=== PATIENT | female | born 1950 | race Caucasian/White ===

== ENCOUNTER 2019-07-09 16:42 | Inpatient (IN) ==
[2019-07-09] MEDS ORDERED: FAMOTIDINE 20MG IV PUSH 20 MG/5 ML SYR IV STA (17:10)
--- NOTE | 2019-07-09 17:24 | XRay Report ---
XR chest 1V portable CLINICAL HISTORY: Chest Pain COMPARISON STUDY: No previous studies for comparison. FINDINGS: Lung volumes are normal. There is no pneumothorax or pleural effusion. There is no consolid ation or evidence for pulmonary edema. There is moderate cardiomegaly. IMPRESSION: 1. No acute cardiopulmonary findings. 2. Moderate cardiomegaly. Electronically signed by: Vadim Cervantes M.D. 07/09/2019 5:23 PM
[2019-07-09 17:57] LABS: Basophils # (auto) 0.02 K/uL (0-0.2); Basophils % (auto) 0.1 %; Eosinophils # (auto) 0.16 K/uL (0-0.5); Eosinophils % (auto) 1.2 %; Hematocrit (blood only) 30.4 % (37-47); Hemoglobin 9.5 g/dL (12.0-16.0); Immature Granulocytes # (auto) 0.04 K/uL (0.00-0.02); Immature Granulocytes % (auto) 0.3 %; Lymphocytes # (auto) 1.14 K/uL (1.2-3.4); Lymphocytes % (auto) 8.5 %; Mean Corpuscular Hemoglobin 26.6 pg (25-34); Mean Corpuscular Hgb Conc 31.3 g/dL (32-36); Mean Corpuscular Volume 85.2 fL (80-100); Mean Platelet Volume 9.9 fL (7.4-10.4); Monocytes # (auto) 1.28 K/uL (0.11-0.59); Monocytes % (auto) 9.5 %; Neutrophils # (auto) 10.84 K/uL (1.4-6.5); Neutrophils % (auto) 80.4 %; Nucleated RBC # (auto) 0.04 K/uL (0-0); Nucleated RBC % (auto) 0.3 %; Platelet Count 466 K/uL (130-400); RDW Coefficient of Variation 16.9 % (11.5-14.5); RDW Standard Deviation 50.9 fL (36.4-46.3); Red Blood Count 3.57 M/uL (4.2-5.4); White Blood Count 13.48 K/uL (4.8-10.8)
[2019-07-09 18:12] LABS: Partial Thromboplastin Ratio 0.8; Partial Thromboplastin Time 20.5 Seconds (21.0-31.0); Prothrombin Time 10.6 Seconds (9.0-12.0)
[2019-07-09 18:20] LABS: Alanine Aminotransferase 21 U/L (12-78); Albumin Level 3.2 gm/dl (3.4-5.0); Aspartate Aminotransferase 10 U/L (15-37); BUN Creatinine Ratio 43.9 (10-20); Bilirubin Direct 0.2 mg/dl (0-0.2); Blood Urea Nitrogen 35 mg/dl (7-18); Calcium 8.5 mg/dl (8.5-10.1); Carbon Dioxide 29 mmol/L (21-32); Chloride 97 mmol/L (98-107); Creatinine Clr Calc Pharmacy 91.5 ml/min; Est GFR (African American) 90.4; Glucose 123 mg/dl (70-99); Lipase 188 U/L (73-393); Potassium 3.4 mmol/L (3.5-5.1); Sodium 137 mmol/L (136-145)
[2019-07-09 18:25] LABS: Alkaline Phosphatase 73 U/L (45-117); Bilirubin,Total 0.8 mg/dl (0.2-1); Globulin 3.1 gm/dl (2.5-4.0); Phosphorus 3.4 mg/dl (2.5-4.9); Total Protein 6.3 gm/dl (6.4-8.2); Troponin I < 0.015 ng/ml (0-0.045)
[2019-07-09] MEDS ORDERED: IOVERSOL 100ml IV PRN (19:11)
--- NOTE | 2019-07-09 19:27 | CT Scan Report ---
CT OF THE ABDOMEN AND PELVIS WITH CONTRAST CLINICAL HISTORY: Abdominal pain. Melena. COMPARISON STUDY: None. TECHNIQUE: Following IV administration of 92 mL of Optiray-320, axial images of the abdomen and pelvi s were obtained from the lung bases to the proximal femurs. Images were reviewed in the axial, sagitt al, and coronal planes. IV contrast was administered without complication. Automated exposure contro l was utilized for the study. A dose lowering technique was utilized adhering to the principles of A COLETTE. CT DOSE: 1946.69 mGy.cm FINDINGS: Lung bases are clear. Moderate cardiomegaly is noted. No pneumatosis, free air or portal ve nous gas is present. No hepatic lesions are present. The spleen, adrenal glands and kidneys are tez l. Is no hydronephrosis. There is no biliary or pancreatic ductal dilatation. There is subtle infiltr ation along the lesser curvature the stomach, adjacent to the antrum. No free air is present. There i s no abscess. Apparent gastric wall thickening is noted. There is no evidence for a bowel obstruction . The appendix is normal. Colonic diverticulosis is noted without evidence for acute diverticulitis. There are no suspicious osseous lesions. Multilevel degenerative changes within the lumbar spine are noted. Sensitivity for detection mucosal lesions is diminished given CT technique. IMPRESSION: 1. Minimal infiltration adjacent to the gastric antrum along the lesser curvature. Possible gastric w all thickening. The findings favor peptic ulcer disease. No free air. A mucosal lesion could appear s imilar. GI consultation for consideration for endoscopy is recommended. 2. No bowel obstruction. Normal appendix. Electronically signed by: Vadim Cervantes M.D. 07/09/2019 7:25 PM
[2019-07-09] MEDS ORDERED: PANTOprazole 80 MG in DEXTROSE 5% 100 ML IV SCH (19:45)
--- NOTE | 2019-07-09 20:27 | Emergency Department Note ---
Entered by Levon Diaz acting as a scribe for Fazal Rossi MD History of Present Illness General Chief complaint: GI Bleed Stated complaint: gi bleed/light headed Time Seen by Provider: 07/09/19 16:50 Source: patient History of Present Illness Onset (ago): day(s) 2 Location: abdomen (GI bleeding) Pain Consistency: + other (worsening) Quality: + other (black and tarry stools) Associated symptoms: + denies other symptoms (congestion), + shortness of breath and + other (light-headedness, dizziness, shaking, leg swelling, and hand cram ping); no cough and no fever/chills The patient is a 68 year old F who presents to the Emergency Room with complaints of worsening GI bleeding that started 2 days ago. The patient states that she has had diarrhea for the past two days. She describes that her stools are black and tarry. She states that she is currently experiencing light-h eadedness, dizziness, shaking, shortness of breath, leg swelling, and hand cramping. She notes that her shortness of breath is due to fluid retention. She adds that she is on a water pill. She denies that she is currently experiencing fevers, chills, coughing, and congestion. She states that she currently takes Plavix and aspirin after a stroke. She adds that she is on metformin for a history of diabetes. She denies ever having a blood transfusion. Home Medications Home Medications Medication Instructions Recorded Confirmed Type acetaminophen 500 mg PO DIRECTED PRN 07/09/19 07/09/19 History aspirin 81 mg PO QAM 07/09/19 07/09/19 History atenolol 25 mg PO QAM 07/09/19 07/09/19 History clopidogrel [Plavix] 75 mg PO QAM 07/09/19 07/09/19 History hydrochlorothiazide 25 mg PO QAM 07/09/19 07/09/19 History lactobacillus combination no.4 0 mmu cells PO QAM 07/09/19 07/09/19 History [Probiotic] magnesium 250 mg PO QAM 07/09/19 07/09/19 History metformin 1,000 mg PO BID 07/09/19 07/09/19 History pyridoxine (vitamin B6) [Vitamin 100 mg PO QAM 07/09/19 07/09/19 History B-6] Allergies Allergy/AdvReac Type Severity Reaction Status Date / Time ciprofloxacin [From Cipro] Allergy Intermediate Throat Verified 07/09/19 18:06 tightness tetracycline Allergy Intermediate Throat Verified 07/09/19 18:06 tightness Past Med/Surg History Medical History Fluid retention in legs (Chronic) Diabetes (Chronic) Kidney stones Surgical History H/O hysterectomy with oophorectomy History of laminectomy Hx of cholecystectomy Total knee replacement status Family History Other No significant family history Social History Preferred Language: Danish Communication Ability: Effective Silo Painter Required: No Beliefs That Will Affect Care: None Current Living Situation: Alone Other Information That Helps Us Care for You: No Feels Safe at Home: Yes Safety Concerns: Feels Safe At This Time Smoking Status: Former smoker Do You Dip or Chew Tobacco: No ; Second Hand Exposure: No ; Tobacco Cessation Education Requested by Patient: No Hx Alcohol Use: Yes Alcohol type: beer, wine and hard liquor Hx Substance Use: No Review of Systems See HPI for pertinent positives & negatives. and A total of 10 systems reviewed and were otherwise negative Physical Exam Vital Signs Vital Signs - 24 hr 07/09/19 16:58 07/09/19 17:42 07/09/19 18:24 Temperature 36.8 C Temperature Source Oral Sepsis Recent Fever Within 48 Hours No Sepsis New/Unexplained Change in Mental Status No Sepsis Action Taken by Nursing No Action Required Pulse Rate 87 Pulse Rate [Apical] 85 Respiratory Rate 18 20 Blood Pressure 136/73 Blood Pressure [Left Arm] 135/78 Blood Pressure Mean 94 Blood Pressure Mean [Left Arm] 97 Pulse Oximetry 95 96 95 Oxygen Delivery Method Room Air Room Air Room Air GENERAL: Awake, alert, fatigued-appearing. BMI: 50.1 kg/m^2 HENT: Normocephalic, atraumatic. Oropharynx with dry mucous membranes and ot herwise unremarkable. EYES: Normal conjunctiva. Sclera non-icteric. EOMI. No nystamgus. PEARRL. NECK: Supple. No nuchal rigidity. FROM. No JVD. RESPIRATORY: CTAB CARDIAC: RRR ABDOMEN: Soft, non-distended. Generalized abdominal discomfort without discrete tenderness. No rebound or guarding. No masses. RECTAL: melena, no gross blood, guaiac positive MUSCULOSKELETAL: Chest examination reveals no tenderness. The back is symmetrical on inspection without obvious abnormality. There is no CVA tenderne ss to palpation. No joint edema. LOWER EXTREMITIES: Calves are equal size bilaterally and non-tender. No edema. No discoloration. NEURO: Normal sensorium. No sensory or motor deficits noted. SKIN: No rash or jaundice noted. Course 1704: The patient was evaluated in room C8. A complete history and physical exam was performed. 1808: I performed a rectal exam on the patient with a female nurse chimney builder brick present. 1931: [facility] He will evaluate the patient for further management. Consultations Consultation #1: I [facility] the [facility] He will evaluate the patient for further management. Time: 19:32 Administered Medications Pantoprazole Sodium 40 mg/ (Dextrose) 100 mls @ 20 mls/hr IV Q5H [facility] Stop: 08/08/19 19:59 Last Admin: 07/09/19 20:33 Dose: 20 mls/hr Documented by: [id number] Discontinued Medications Famotidine (Pepcid 20mg Iv Push) 20 mg in 5 mls @ 2.5 mls/min IV NOW STA Stop: 07/09/19 17:11 Last Admin: 07/09/19 17:56 Dose: 2.5 mls/min Documented by: [id number] Pantoprazole Sodium 80 mg/ (Dextrose) 120 mls @ 480 mls/hr IV TODAY@1945 [place] Stop: 07/09/19 19:59 Last Admin: 07/09/19 20:01 Dose: 480 mls/hr Documented by: [id number] Ioversol (Optiray 320 100ml) 92 ml IV ONCE PRN PRN Reason: Interaction Checking Stop: 07/13/19 19:10 Last Admin: 07/09/19 19:12 Dose: 92 ml Documented by: [id number] Medical Decision Making Differential Diagnosis Differential diagnosis: Etiologies such as esophagitis, variceal bleed, [place], [place] tear, gastritis, peptic ulcer disease, AVM, inflammatory bowel disease, ischemia, diverticulosis, colitis, malignancy, coagulopathy, thrombocytopenia, fissure, hemorrhoid, epistaxis , as well as others were entertained. Medical Records Attestation: I reviewed the patient's medical records. Home Medications Current Medication List: was personally reviewed by me Laboratory Data Attestation: I reviewed the patient's lab results. Result diagrams: 07/09/19 22:48 07/09/19 17:43 Lab Results 07/09/19 07/09/19 07/09/19 Range/Units 17:43 17:43 17:43 WBC 13.48 H (4.8-10.8) K/uL RBC 3.57 L (4.2-5.4) M/uL Hgb 9.5 L (12.0-16.0) g/dL Hct 30.4 L (37-47) % MCV 85.2 (80-100) fL MCH 26.6 (25-34) pg MCHC 31.3 L (32-36) g/dL RDW Std Deviation 50.9 H (36.4-46.3) fL RDW Coeff of Mary Anne 16.9 H (11.5-14.5) % Plt Count 466 H (130-400) K/uL MPV 9.9 (7.4-10.4) fL Immature Gran % (Auto) 0.3 % Neut % (Auto) 80.4 % Lymph % (Auto) 8.5 % [place] % (Auto) 9.5 % Eos % (Auto) 1.2 % Baso % (Auto) 0.1 % Immature Gran # (Auto) 0.04 H (0.00-0.02) K/uL Neut # (Auto) 10.84 H (1.4-6.5) K/uL Lymph # (Auto) 1.14 L (1.2-3.4) K/uL [place] # (Auto) 1.28 H (0.11-0.59) K/uL Eos # (Auto) 0.16 (0-0.5) K/uL Baso # (Auto) 0.02 (0-0.2) K/uL Absolute Nucleated RBC 0.04 H (0-0) K/uL Nucleated RBC % (auto) 0.3 % PT (9.0-12.0) Seconds INR (0.9-1.1) APTT (21.0-31.0) Seconds PTT Ratio Sodium 137 (136-145) mmol/L Potassium 3.4 L (3.5-5.1) mmol/L Chloride 97 L (98-107) mmol/L Carbon Dioxide 29 (21-32) mmol/L Anion Gap 11.0 (3-11) BUN 35 H (7-18) mg/dl Creatinine 0.79 (0.6-1.2) mg/dl Est Cr Clr Drug Dosing 91.5 ml/min Est GFR ( Amer) 90.4 Est GFR (Non-Af Amer) 78.0 BUN/Creatinine Ratio 43.9 H (10-20) Glucose 123 H (70-99) mg/dl Calcium 8.5 (8.5-10.1) mg/dl Phosphorus 3.4 (2.5-4.9) mg/dl Magnesium (1.8-2.4) mg/dl Total Bilirubin 0.8 (0.2-1) mg/dl Direct Bilirubin 0.2 (0-0.2) mg/dl AST 10 L (15-37) U/L ALT 21 (12-78) U/L Alkaline Phosphatase 73 (45-117) U/L Troponin I < 0.015 (0-0.045) ng/ml Total Protein 6.3 L (6.4-8.2) gm/dl Albumin 3.2 L (3.4-5.0) gm/dl Globulin 3.1 (2.5-4.0) gm/dl Albumin/Globulin Ratio 1.0 (0.9-2) Lipase 188 (73-393) U/L Ethyl Alcohol mg/dL (0-3) mg/dl Blood Type A Positive Antibody Screen NEGATIVE 07/09/19 07/09/19 07/09/19 Range/Units 17:43 17:43 17:43 WBC (4.8-10.8) K/uL RBC (4.2-5.4) M/uL Hgb (12.0-16.0) g/dL Hct (37-47) % MCV (80-100) fL MCH (25-34) pg MCHC (32-36) g/dL RDW Std Deviation (36.4-46.3) fL RDW Coeff of Mary Anne (11.5-14.5) % Plt Count (130-400) K/uL MPV (7.4-10.4) fL Immature Gran % (Auto) % Neut % (Auto) % Lymph % (Auto) % [place] % (Auto) % Eos % (Auto) % Baso % (Auto) % Immature Gran # (Auto) (0.00-0.02) K/uL Neut # (Auto) (1.4-6.5) K/uL Lymph # (Auto) (1.2-3.4) K/uL [place] # (Auto) (0.11-0.59) K/uL Eos # (Auto) (0-0.5) K/uL Baso # (Auto) (0-0.2) K/uL Absolute Nucleated RBC (0-0) K/uL Nucleated RBC % (auto) % PT 10.6 (9.0-12.0) Seconds INR 1.0 (0.9-1.1) APTT 20.5 L (21.0-31.0) Seconds PTT Ratio 0.8 Sodium (136-145) mmol/L Potassium (3.5-5.1) mmol/L Chloride (98-107) mmol/L Carbon Dioxide (21-32) mmol/L Anion Gap (3-11) BUN (7-18) mg/dl Creatinine (0.6-1.2) mg/dl Est Cr Clr Drug Dosing ml/min Est GFR ( Amer) Est GFR (Non-Af Amer) BUN/Creatinine Ratio (10-20) Glucose (70-99) mg/dl Calcium (8.5-10.1) mg/dl Phosphorus (2.5-4.9) mg/dl Magnesium 2.0 (1.8-2.4) mg/dl Total Bilirubin (0.2-1) mg/dl Direct Bilirubin (0-0.2) mg/dl AST (15-37) U/L ALT (12-78) U/L Alkaline Phosphatase (45-117) U/L Troponin I (0-0.045) ng/ml Total Protein (6.4-8.2) gm/dl Albumin (3.4-5.0) gm/dl Globulin (2.5-4.0) gm/dl Albumin/Globulin Ratio (0.9-2) Lipase (73-393) U/L Ethyl Alcohol mg/dL < 3.0 (0-3) mg/dl Blood Type Antibody Screen Imaging Data Radiologist's Impression: Radiology results as stated below per my review and the radiologist's interpretation: XR chest 1V portable CLINICAL HISTORY: Chest Pain COMPARISON STUDY: No previous studies for comparison. FINDINGS: Lung volumes are normal. There is no pneumothorax or pleural effusion. There is no consolidation or evidence for pulmonary edema. There is moderate cardiomegaly. IMPRESSION: 1. No acute cardiopulmonary findings. 2. Moderate cardiomegaly. Electronically signed by: Vadim Cervantes M.D. 07/09/2019 5:[address] OF THE ABDOMEN AND PELVIS WITH CONTRAST CLINICAL HISTORY: Abdominal pain. Melena. COMPARISON STUDY: None. TECHNIQUE: Following IV administration of 92 mL of Optiray-320, axial images of the abdomen and pelvis were obtained from the lung bases to the proximal femurs. Images were reviewed in the axial, sagittal, and coronal planes. IV contrast was administered without complication. Automated exposure control was utilized for the study. A dose lowering technique was utilized adhering to the principles of ALARA. CT DOSE: 1946.69 mGy.cm FINDINGS: Lung bases are clear. Moderate cardiomegaly is noted. No pneumatosis, free air or portal venous gas is present. No hepatic lesions are present. The spleen, adrenal glands and kidneys are normal. Is no hydronephrosis. There is no biliary or pancreatic ductal dilatation. There is subtle infiltration along the lesser curvature the stomach, adjacent to the antrum. No free air is present. There is no abscess. Apparent gastric wall thickening is noted. There is no evidence for a bowel obstruction. The appendix is normal. Colonic diverticulosis is noted without evidence for acute diverticulitis. There are no suspicious osseous lesions. Multilevel degenerative changes within the lumbar spine are noted. Sensitivity for detection mucosal lesions is diminished given CT technique. IMPRESSION: 1. Minimal infiltration adjacent to the gastric antrum along the lesser curvature. Possible gastric wall thickening. The findings favor peptic ulcer disease. No free air. A mucosal lesion could appear similar. GI consultation for consideration for endoscopy is recommended. 2. No bowel obstruction. Normal appendix. Electronically signed by: Vadim Cervantes M.D. 07/09/2019 7:25 PM ECG Data Attestation: I personally reviewed and interpreted this ECG as follows: Indication: SOB/dyspnea Rate (beats per minute): 81 Rhythm: normal sinus Findings: + other (normal axis) and + T-wave inversion (Anterior); no acute ischemic change Blood Pressure Blood Pressure Findings: Normal blood pressure Blood Pressure Disposition: did not require urgent referral MDM Narrative Patient is a pleasant 68-year-old woman who presents emergency department with generalized weakness, dizziness with associated nausea and black stools over the past several days per hpi. On arrival the patient fatigued appearing but no acute distress, afebrile stable vital signs. On exam the patient exhibits carol phi without gross blood that is guaiac positive. Generalized abdominal discomfort without discrete tenderness. WBC 13.4, nonspecific. H/H 9.5/30.4 without prior values for comparison. Platelets 466. Chemistry without acidosis. Creatinine within normal limits however BUN is elevated further supp orting likely upper GI bleed. Electrolytes and LFTs otherwise unremarkable. Troponin negative. CT abdomen pelvis demonstrates minimal infiltration adjacent to the gastric antrum with possible gastric wall thickening that favors PUD. However no free air. Patient was ordered for Protonix bolus and drip. Type and screen had been performed. Given the patient is hemodynamically stable without active hemorrhage will defer transfusion at this time. Case was discussed with Dr. Keller, [facility] hospitalist, who will evaluate the patient for admission. Impression & Plan Melena, Anemia, Dizziness Discharge Plan Visit Data *Final* Discharge Date/Time: 07/09/19 21:28 Chief Complaint: GI Bleed Stated Complaint: gi bleed/light headed ED Provider: Fazal Rossi Discharge Problem: Melena, Anemia, Dizziness Patient Disposition: Admitted As Inpatient Discharge Instructions Interventions: ED Discharge Assessment Last Done: 07/09/19 21:28 Discharge Problem: Anemia Qualifiers: Anemia type: unspecified type Qualified Code(s): D64.9 - Anemia, unspecified The scribe's documentation has been prepared under my direction and personally reviewed by me in its entirety. I confirm that the note above accurately re flects all work, treatment, procedures, and medical decision making performed by me.
[2019-07-09] MEDS: PANTOprazole 40 MG in DEXTROSE 5% 100 ML IV SCH (20:33)
[2019-07-09] MEDS ORDERED: ONDANSETRON INJ 2 MG/ML 2 ML VIAL IV PRN (22:28)
[2019-07-09] MEDS ORDERED: NITROGLYCERIN SL 0.4 MG/TAB TAB SL PRN (22:28)
[2019-07-09] MEDS ORDERED: DEXTROSE 50% 50 ML SYRINGE IV PRN (22:45)
[2019-07-09] MEDS ORDERED: GLUCOSE 40% GEL 15 GM TUBE PO PRN (22:45)
[2019-07-09] MEDS ORDERED: GLUCOSE 10 TABS/TUBE PO PRN (22:45)
[2019-07-09] MEDS ORDERED: CARBOHYDRATES FOR HYPOGLYCEMIA PO PRN (22:45)
[2019-07-09] MEDS ORDERED: GLUCAGON FOR INJ 1 MG VIAL IM PRN (22:45)
--- NOTE | 2019-07-09 22:48 | History and Physical Report ---
DATE OF ADMISSION: 07/09/2019 CHIEF COMPLAINT: Gastrointestinal bleed. HISTORY OF PRESENT ILLNESS: This patient is a 68-year-old female with past medical history significant for diabetes, hypertension, sleep apnea, noncompliant with continuous positive airway pressure, history of cerebrovascular accident about 8 years ago postoperatively after bilateral knee surgeries. She has a history of factor V Leiden deficiency and since then she is on aspirin and Plavix since last 8 years. She comes in with black stools. The patient is from [facility]. She is locating to [place]. She is coming close to live with her sister. She has no primary care physician yet in the [place]. She states since the last 2 days ago, she started noticing black stools and diarrhea. The last episode was yesterday afternoon, but then she started feeling dizzy and lightheaded, and that has brought her to the hospital. Her stool in the Emergency Room was black. She denies taking any [id number] ibuprofen, Motrin .On aspirin and Plavix. She has some discomfort in the epigastric region. No nausea. No vomiting. No chest pain. No shortness of breath currently, but she gets short of breath walking up hills. For the last couple of months, she noticed swelling in the lower extremities. She was diagnosed with sleep apnea a long time back, but she could not tolerate the continuous positive airway pressure machine. Denies any headache. No blurred vision. No earache. She has some sore throat. No difficulty swallowing. Appetite is okay. Sleeps okay. No recent weight gain or weight loss. No cough. No fever. No chills. No feeling of hot or cold. Normal bladder movements. No burning micturition. No blood in the urine. No rash. She states she bruises easily as she is on aspirin and Plavix. Currently resting comfortably and hemodynamically stable. ALLERGIES: CIPRO AND TETRACYCLINE. PAST MEDICAL HISTORY: As mentioned. PAST SURGICAL HISTORY: Status post cholecystectomy, status post back surgeries, status post hysterectomy and status post bilateral knee surgeries. MEDICATIONS: The patient is on Tylenol 500 mg as needed, aspirin 81 mg p.o. daily, atenolol 25 mg p.o. daily, Plavix 75 mg p.o. daily, hydrochlorothiazide 25 mg p.o. daily, lactobacillus daily, magnesium 250 mg p.o. daily, metformin 1000 mg p.o. b.i.d., and vitamin B6 1000 mg p.o. q.a.m. FAMILY HISTORY: Significant for mother from lung cancer. Father had cerebral bleeding. Maternal grandmother had diabetes. Grandfather had colon cancer. SOCIAL HISTORY: Quit smoking 8 years ago. Prior to that, she smoked half pack a day for 25 years. Denies alcohol use. Currently lives alone. Her sister lives close by. REVIEW OF SYMPTOMS: As per HPI. Rest of review of systems negative. PHYSICAL EXAMINATION: GENERAL: The patient is morbidly obese, not in acute distress. VITAL SIGNS: Temperature 36.8, pulse 85, respiratory rate 20, blood pressure 135/78 and oxygen 95% on room air. HEENT: No pallor. No icterus. Pupils are equal, round and reactive to light. NECK: No JVD. No neck masses. No carotid bruits. CARDIOVASCULAR: S1, S2 heard. Regular rate and rhythm. No murmur. No gallop. RESPIRATORY SYSTEM: Normal AP diameter. No accessory muscle use. No wheezing. No crackles. ABDOMEN: Soft. Bowel sounds present. Mild epigastric tenderness. No guarding. No rigidity. No distention. CENTRAL NERVOUS SYSTEM: Cranial nerves II through XII are grossly intact. Nonfocal. EXTREMITIES: Bilateral lower extremity +2 pedal edema present. No erythema seen. LABORATORY DATA: WBC 13.4, hemoglobin 9.5, hematocrit 30.4 and platelets 466. PT 10.6, INR 1, APTT 20.5. Sodium 137, potassium 3.4, chloride 97, bicarbonate 29, BUN 35, creatinine 0.7, serum glucose 123, calcium 8.5, phosphorus 3.4, magnesium 2, total bilirubin 0.8, direct bilirubin 0.2, AST 10, ALT 21 and alkaline phosphatase 73. Troponin I less than 0.015. Lipase 188. Ethyl alcohol less than 3. IMAGING: CT of abdomen and pelvis shows minimal infiltration adjacent to the gastric antrum along the lesser curvature, probable gastric wall thickening. This finding favors peptic ulcer disease. No free air. The mucosal lesions appear similar. Gastroenterology consultation for consideration of endoscopy was recommended. No bowel obstruction. Normal appendix. Chest x-ray, no acute cardiopulmonary findings, moderate cardiomegaly. Electrocardiogram, normal sinus rhythm with rate of 80, q waves in inferior leads, nonspecific T-wave abnormalities. ASSESSMENT AND PLAN: This is a 68-year-old female who presents with melena. 1. Gastrointestinal bleed, melena, most likely upper gastrointestinal bleed. The patient is on aspirin, Plavix and also CAT scan showed some possible peptic ulcer disease. The patient states a few years back, she had a lot of nausea and vomiting and endoscopy showed a large polyp in the upper stomach causing obstruction. It was removed. We will keep the patient n.p.o. Gentle fluids. I.V. Protonix drip. Hemoglobin and hematocrit q. 6 hours. We will get blood consent and consult Gastroenterology for possible endoscopy. Closely monitor on tele floor. We will transfuse packed red blood cells if needed.Blood consent obtained. 2. Lower extremity edema with some electrocardiogram changes. The patient has sleep apnea, but noncompliant with continuous positive airway pressure. We will get an echocardiogram. We will monitor for volume overload as patient will be on l gentle fluids. 3. History of sleep apnea, noncompliant with continuous positive airway pressure, needs close followup. 4. History of cerebrovascular accident 7 years ago when she had bilateral knee surgeries, on aspirin and Plavix, which we are holding currently. 5. History of diabetes. Hold metformin, currently n.p.o., we will place her on insulin sliding scale and follow HbA1c. Follow blood sugars in the hospital. 6. History of hypertension. Holding hctz. Continue atenolol with holding parameters. 7. Deep venous thrombosis prophylaxis, sequential compression devices for now. 8. Disposition: Closely monitor in the tele floor. Level 1 full code. Physical therapy and occupational therapy prior to discharge. Social Service to help with discharge planning. Needs followup appointments since the patient is relocating to [place]. [facility]
[2019-07-09 22:56] LABS: Hematocrit (blood only) 30.5 % (37-47); Hemoglobin 9.5 g/dL (12.0-16.0)
[2019-07-10] MEDS: INSULIN ASPART 100 UNITS/ML 3 ML PEN SC SCH ×5 (00:10→21:22)
[2019-07-10] MEDS: SODIUM CHLORIDE 0.9% 1000ML 1,000 ML IV SCH ×2 (00:12→13:44)
[2019-07-10] MEDS: PANTOprazole 40 MG in DEXTROSE 5% 100 ML IV SCH ×5 (03:04→19:13)
[2019-07-10 05:56] LABS: Basophils # (auto) 0.03 K/uL (0-0.2); Basophils % (auto) 0.2 %; Eosinophils % (auto) 1.6 %; Immature Granulocytes # (auto) 0.06 K/uL (0.00-0.02); Immature Granulocytes % (auto) 0.5 %; Lymphocytes # (auto) 1.31 K/uL (1.2-3.4); Lymphocytes % (auto) 10.5 %; Mean Corpuscular Hemoglobin 26.6 pg (25-34); Mean Corpuscular Volume 85.8 fL (80-100); Mean Platelet Volume 9.8 fL (7.4-10.4); Monocytes # (auto) 1.72 K/uL (0.11-0.59); Monocytes % (auto) 13.8 %; Neutrophils # (auto) 9.15 K/uL (1.4-6.5); Neutrophils % (auto) 73.4 %; Nucleated RBC # (auto) 0.03 K/uL (0-0); Nucleated RBC % (auto) 0.3 %; Platelet Count 434 K/uL (130-400); RDW Standard Deviation 52.4 fL (36.4-46.3); Red Blood Count 3.38 M/uL (4.2-5.4); White Blood Count 12.47 K/uL (4.8-10.8)
[2019-07-10 06:27] LABS: Creatinine Clr Calc Pharmacy 104.5 ml/min; Est GFR (African American) 105.6; Est GFR (Non-African American) 91.2; Potassium 3.4 mmol/L (3.5-5.1)
[2019-07-10 07:00] LABS: Estimated Average Glucose 189 mg/dl; Hemoglobin A1C 8.2 % (4.5-5.6)
[2019-07-10] MEDS: MAGNESIUM OXIDE 400 MG TAB PO SCH (08:11)
[2019-07-10] MEDS: ATENOLOL 25 MG TABLET PO SCH (08:11)
[2019-07-10] MEDS: POTASSIUM CHLORIDE / WTR 10 MEQ/100 ML PLCT IV SCH ×2 (08:11→08:54)
[2019-07-10 10:54] LABS: Hematocrit (blood only) 29.1 % (37-47); Hemoglobin 8.9 g/dL (12.0-16.0)
--- NOTE | 2019-07-10 13:20 | Hospitalist Progress Note ---
Date of Service July 10, 2019 Assessment & Plan (1) Melena: Has history of gastric polyp removed about 8 years back and no EGD following that Admitted with the 2 days history of loose black tarry stool Denies any use of NSAID use outside her usual aspirin and Plavix No more black tarry stools since admission Complains to have dizziness on ambulation but denies any chest pain and/or palpitation Hemoglobin remains stable at 9.0 Hemodynamically stable Has been on Protonix drip and n.p.o. for now Gastroenterology consulted Present on Admission?: Yes (2) Anemia: Secondary to upper GI blood loss (3) Dizziness: Likely secondary to low hemoglobin (4) Diabetes: Will check hemoglobin A1c Place her on sliding scale insulin coverage (5) Sleep apnea: History of sleep apnea but does not tolerate CPAP and BiPAP No acute symptoms (6) Hypertension: BP is controlled (7) Factor V Leiden mutation: Has been on aspirin and Plavix Aspirin and Plavix are on hold DVT prophylaxis SCDs CODE STATUS Full Subjective 07/10 The patient was seen and examined in telemetry unit She is a 68-year-old female with past medical history significant for diabetes, hypertension, sleep apnea, noncompliant with continuous positive airway pressure, history of cerebrovascular accident about 8 years ago andfactor V Leiden deficiency and since then she is on aspirin and Plavix since last 8 years. She was admitted yesterday with the melanotic stool for the last 2 days with diarrhea She denies any abdominal discomfort, any nausea no vomiting, denies any chest pain or palpitation and did not have any bowel movement since admission Review of Systems Review of Systems: All systems reviewed and unremarkable except as noted below Gastrointestinal: no abdominal pain, no bloating, no nausea, no vomiting, no hematemesis and no melena (Since admission.) Physical Exam Physical Exam: Lying in bed comfortably, obese Constitutional: well developed, well nourished, + ill appearing and + obese; no acute distress Eyes: PERRL, conjunctivae normal, anicteric sclerae ENMT: external ear and nose normal, oropharynx normal Neck: trachea midline, no thyromegaly Respiratory: normal respiratory effort; no respiratory distress Auscultat ion: lungs clear to auscultation bilaterally and + diminished lung sounds (At the bases) Cardiovascular: Rate/Rhythm: regular rate and regular rhythm Heart Sounds: no murmur Gastrointestinal (Abdomen): Percussion/Palpation: abdomen soft Lymphatic: no cervical or axillary lymphadenopathy Results & Data Vital Signs (Past 12 Hours) Vital Signs Temp Pulse Resp BP Pulse Ox 07/10/19 11:48 36.9 C 71 18 113/71 93 07/10/19 07:55 36.8 C 85 18 127/84 91 07/10/19 03:42 36.8 C 85 16 95/52 L 90 Laboratory Results Short CBC 07/09/19 07/09/19 07/10/19 Range/Units 17:43 22:48 05:31 WBC 13.48 H 12.47 H (4.8-10.8) K/uL Hgb 9.5 L 9.5 L 9.0 L (12.0-16.0) g/dL Hct 30.4 L 30.5 L 29.0 L (37-47) % Plt Count 466 H 434 H (130-400) K/uL 07/10/19 Range/Units 10:42 WBC (4.8-10.8) K/uL Hgb 8.9 L (12.0-16.0) g/dL Hct 29.1 L (37-47) % Plt Count (130-400) K/uL BMP 07/09/19 07/10/19 17:43 05:31 Sodium 137 137 Potassium 3.4 L 3.4 L Chloride 97 L 97 L Carbon Dioxide 29 33 H BUN 35 H 25 H Creatinine 0.79 0.68 Glucose 123 H 167 H Calcium 8.5 8.0 L Cardiac Enzymes 07/09/19 Range/Units 17:43 Troponin I < 0.015 (0-0.045) ng/ml Liver Function 07/09/19 Range/Units 17:43 Total Bilirubin 0.8 (0.2-1) mg/dl Direct Bilirubin 0.2 (0-0.2) mg/dl AST 10 L (15-37) U/L ALT 21 (12-78) U/L Alkaline Phosphatase 73 (45-117) U/L Albumin 3.2 L (3.4-5.0) gm/dl Medications Administered Current Inpatient Medications Acetaminophen (Tylenol) 650 mg PO Q4H PRN PRN Reason: Pain or Fever Stop: 08/08/19 22:27 Atenolol (Tenormin) 25 mg PO QAM [facility] Stop: 08/09/19 08:59 Last Admin: 07/10/19 08:11 Dose: 25 mg Documented by: Dextrose (Dextrose 50%) 25 - 50 ml IV UD PRN; Protocol PRN Reason: Hypoglycemia Protocol Stop: 08/08/19 22:44 Glucagon (Glucagen) 1 mg IM UD PRN; Protocol PRN Reason: Hypoglycemia Protocol Stop: 08/08/19 22:44 Glucose (Glucose 40%) 15 - 30 gm PO UD PRN; Protocol PRN Reason: Hypoglycemia Protocol Stop: 08/08/19 22:44 Glucose (Dex4 Glucose) 4 - 8 tabs PO UD PRN; Protocol PRN Reason: Hypoglycemia Protocol Stop: 08/08/19 22:44 Sodium Chloride (Nss 1000ml) 1,000 mls @ 75 mls/hr IV .[id number] [facility] Stop: 08/08/19 22:27 Last Admin: 07/10/19 00:12 Dose: 75 mls/hr Documented by: Pantoprazole Sodium 40 mg/ (Dextrose) 100 mls @ 20 mls/hr IV Q5H [facility] Stop: 08/09/19 02:59 Last Admin: 07/10/19 08:54 Dose: 20 mls/hr Documented by: Insulin Aspart (Novolog Flexpen) 0 units SC ACHS [facility] Stop: 08/08/19 22:27 Last Admin: 07/10/19 12:03 Dose: 1 units Documented by: Magnesium Oxide (Mag-Ox) 400 mg PO [facility] Stop: 08/09/19 08:59 Last Admin: 07/10/19 08:11 Dose: 400 mg Documented by: Miscellaneous (Carbohydrates For Hypoglycemia) 15 - 30 gm PO UD PRN PRN Reason: Hypoglycemia Treatment Stop: 08/08/19 22:44 Nitroglycerin (Nitrostat) 0.4 mg SL UD PRN PRN Reason: Chest Pain Stop: 08/08/19 22:27 Ondansetron HCl (Zofran) 4 mg IV Q6H PRN PRN Reason: Nausea Stop: 08/08/19 22:27 (1) Anemia Anemia type: unspecified type Qualified Code(s): D64.9 - Anemia, unspecified
--- NOTE | 2019-07-10 15:14 | Consultation Report ---
DATE OF CONSULTATION: 07/10/2019 REFERRED BY: Dr. Keller. I was asked by Dr. Keller to consult on this woman for evaluation of GI bleeding. HISTORY OF PRESENT ILLNESS: The patient is a 68-year-old woman with a long history of multiple medical problems on aspirin and Plavix, who has been having some dark stools over the past several days. She denies any red rectal bleeding. She has had no nausea or vomiting. She denies any over the counter ibuprofen type products. She states that she gets regular colonoscopies and she even describes having an upper endoscopy at some point several years ago in [place] where she has relocated from. She was not told that there was anything significant found and she thinks the reason they did the upper endoscopy was for chronic nausea symptoms. She denies any significant abdominal pain. She denies any heartburn. She denies any dysphagia. When pressed, she can only come up with some mild low-grade nausea. PAST MEDICAL HISTORY: I reviewed her medical records and her past medical history and her past medical history is significant for diabetes, hypertension, sleep apnea. She had a stroke about 8 years ago. She has factor V Leiden deficiency. ALLERGIES: SHE IS ALLERGIC TO CIPRO AND TETRACYCLINE. OUTPATIENT MEDICATIONS: Include aspirin 81 mg, Plavix, atenolol, hydrochlorothiazide, magnesium, metformin. FAMILY HISTORY: She denies any family history of gastrointestinal disease except for a grandfather with colon cancer. SOCIAL HISTORY: Significant for being a former smoker who stopped 8 years ago. She denies any alcohol use. REVIEW OF SYSTEMS: As above, otherwise she denies any recent change in vision or hearing. She has had no productive cough. She denies any exertional chest pain, though she does get short of breath walking long distances. She has had no pruritus, icterus or jaundice. She denies any recent weight change. She denies any recent fevers or chills. She denies any joint swelling or easy bruising. She has had no dysuria. She has had no change in mood or mental status and denies any seizure history. PHYSICAL EXAMINATION: GENERAL: Reveals a woman in no distress with sister at the bedside. VITAL SIGNS: Her most recent blood pressure is 113/71, pulse is 71, temperature is 36.9, weight is 123 kilograms. SKIN: Anicteric. EYES: Show anicteric sclerae. MOUTH: Clear of lesions. NECK: Supple with no adenopathy. CHEST: Has some scattered coarse breath sounds and she is slightly tachypneic. HEART: Regular. ABDOMEN: Obese but soft. There are no obvious masses or rebound tenderness. Good about bowel sounds. EXTREMITIES: Have some bilateral pedal edema but are otherwise warm with fair distal pulses. NEUROLOGIC: She is alert and oriented x3. LABORATORY DATA: Show a hemoglobin on admission of 9.5 and with hydration down to 8.9, BUN and creatinine are 25 and 0.6 [address]. CAT scan of the abdomen and pelvis with IV contrast revealed some subtle infiltration of the lesser curve of the stomach and some gastric wall thickening. IMPRESSION: A 68-year-old woman with abnormal CT imaging of the stomach and some possible low-grade gastrointestinal bleeding. Most likely this could be related to ulcer disease or gastritis. I highly doubt this is a lower GI issue. Given her comorbid diseases and her pulmonary status, she is certainly high risk for endoscopy and general anesthesia. At this point, I would follow her conservatively and see if we can improve her cardiopulmonary status and follow her hemoglobin. She should be on a proton pump inhibitor and I would at least have her on a clear liquid diet only at this point. I will continue to follow her status to determine timing of endoscopy.
[2019-07-10 16:44] LABS: Hematocrit (blood only) 29.1 % (37-47); Hemoglobin 8.7 g/dL (12.0-16.0)
[2019-07-11] MEDS: PANTOprazole 40 MG in DEXTROSE 5% 100 ML IV SCH ×6 (00:21→23:40)
[2019-07-11 06:17] LABS: Basophils # (auto) 0.03 K/uL (0-0.2); Basophils % (auto) 0.3 %; Eosinophils # (auto) 0.24 K/uL (0-0.5); Eosinophils % (auto) 2.3 %; Hematocrit (blood only) 30.5 % (37-47); Hemoglobin 9.1 g/dL (12.0-16.0); Immature Granulocytes # (auto) 0.03 K/uL (0.00-0.02); Immature Granulocytes % (auto) 0.3 %; Lymphocytes # (auto) 1.06 K/uL (1.2-3.4); Lymphocytes % (auto) 10.1 %; Mean Corpuscular Hemoglobin 26.2 pg (25-34); Mean Corpuscular Hgb Conc 29.8 g/dL (32-36); Mean Corpuscular Volume 87.9 fL (80-100); Mean Platelet Volume 10.3 fL (7.4-10.4); Monocytes # (auto) 0.79 K/uL (0.11-0.59); Monocytes % (auto) 7.5 %; Neutrophils # (auto) 8.35 K/uL (1.4-6.5); Neutrophils % (auto) 79.5 %; Nucleated RBC # (auto) 0.03 K/uL (0-0); Nucleated RBC % (auto) 0.3 %; Platelet Count 432 K/uL (130-400); RDW Coefficient of Variation 17.7 % (11.5-14.5); RDW Standard Deviation 54.6 fL (36.4-46.3); Red Blood Count 3.47 M/uL (4.2-5.4)
[2019-07-11 06:58] LABS: Appearance Urine Cloudy (Clear); Bacteria Urine Automated 1+ (Negative); Blood Urine Negative (Negative); Color Urine Dark Yellow; Epithelial Cell Urine Auto >30 /lpf (0-5); Glucose Urine UA Negative (Negative); Ketones Urine Trace (Negative); Leukocyte Esterase Urine Negative (Negative); Nitrite Urine Negative (Negative); Protein Urine Negative (Negative); RBC Urine Automated 0-4 /hpf (0-4); Specific Gravity Urine 1.025 (1.000-1.030); Urobilinogen Urine Negative (Negative)
[2019-07-11 06:58] LABS: BUN Creatinine Ratio 20.6 (10-20); Calcium 8.3 mg/dl (8.5-10.1); Creatinine Clr Calc Pharmacy 104.1 ml/min; Est GFR (African American) 105.6; Est GFR (Non-African American) 91.2; Potassium 3.7 mmol/L (3.5-5.1)
[2019-07-11 07:02] LABS: Bilirubin Urine Negative (Negative); Ictotest Urine Negative (Negative)
[2019-07-11 07:14] LABS: Cast Urine Automated 0 /lpf (0-5)
[2019-07-11] MEDS: MAGNESIUM OXIDE 400 MG TAB PO SCH (08:11)
[2019-07-11] MEDS: INSULIN ASPART 100 UNITS/ML 3 ML PEN SC SCH ×4 (08:11→20:45)
[2019-07-11] MEDS: hydroCHLOROthiazide 25 MG TAB PO SCH (08:11)
[2019-07-11] MEDS: ATENOLOL 25 MG TABLET PO SCH (08:11)
--- NOTE | 2019-07-11 12:05 | Hospitalist Progress Note ---
Date of Service July 11, 2019 Assessment & Plan (1) Melena: Has history of gastric polyp removed about 8 years back and no EGD following that Admitted with the 2 days history of loose black tarry stool Denies any use of NSAID use outside her usual aspirin and Plavix No more black tarry stools since admission Complains to have dizziness on ambulation but denies any chest pain and/or palpitation Hemoglobin remains stable at 9.0 Hemodynamically stable Has been on Protonix drip and n.p.o. for now Gastroenterology consulted-appreciate input and recommendation No more melena since admission and hemoglobin remains stable Tolerating liquids orally (2) Anemia: Secondary to upper GI blood loss Hemoglobin remains stable at 9.1 (3) Dizziness: Likely secondary to low hemoglobin (4) Diabetes: Will check hemoglobin A1c Place her on sliding scale insulin coverage (5) Sleep apnea: History of sleep apnea but does not tolerate CPAP and BiPAP No acute symptoms Plans to have an outpatient sleep study and agreeable to go by the recommendation (6) Hypertension: BP is controlled Has been on hydrochlorothiazide Has leg edema Echocardiogram showed; normal LV chamber size with mild concentric LVH, normal LV systolic function, EF 65 to 70%, no segmental left ventricular wall motion abnormalities, grade 1 diastolic dysfunction and no significant valvular pathology. (7) Factor V Leiden mutation: Has been on aspirin and Plavix Aspirin and Plavix are on hold Worried about not having Plavix and/or aspirin We will discuss with senior hydrogeologist about restarting at least Plavix DVT prophylaxis SCDs CODE STATUS Full Subjective 07/10 The patient was seen and examined in telemetry unit She is a 68-year-old female with past medical history significant for diabetes, hypertension, sleep apnea, noncompliant with continuous positive airway pressure, history of cerebrovascular accident about 8 years ago andfactor V Leiden deficiency and since then she is on aspirin and Plavix since last 8 years. She was admitted yesterday with the melanotic stool for the last 2 days with diarrhea She denies any abdominal discomfort, any nausea no vomiting, denies any chest pain or palpitation and did not have any bowel movement since admission 07/11 Patient was seen and examined in telemetry unit She complains of weakness and exertional shortness of breath Bowel has moved no definite melena and her hemoglobin remains stable Tolerating liquids Denies any abdominal pain, nausea and/or vomiting, no chest pain and/or palpitation Review of Systems 2 Review of Systems: All systems reviewed and unremarkable except as noted below Respiratory: + dyspnea on exertion Neurologic: + generalized weakness Physical Exam Physical Exam: Lying in bed comfortably, obese Constitutional: well developed, well nourished and + obese; no acute distress Eyes: PERRL, conjunctivae normal, anicteric sclerae ENMT: external ear and nose normal, oropharynx normal Neck: trachea midline, no thyromegaly Respiratory: normal respiratory effort; no respiratory distress Auscultation: lungs clear to auscultation bilaterally and + diminished lung sounds (At the bases) Cardiovascular: Rate/Rhythm: regular rate and regular rhythm Heart Sounds: no murmur Gastrointestinal (Abdomen): Inspection/Auscultation: abdomen normal to inspection and normal bowel sounds Percussion/Palpation: abdomen soft; abdomen nontender Neurologic: moves all extremities; no focal motor deficits Psychiatric: A+Ox3, euthymic affect Lymphatic: no cervical or axillary lymphadenopathy Results & Data Vital Signs (Past 12 Hours) Vital Signs Temp Pulse Resp BP BP Pulse Ox 07/11/19 11:17 37.1 C 63 18 108/69 93 07/11/19 07:53 83 18 106/67 92 07/11/19 02:45 36.5 C 92 H 18 106/71 90 Laboratory Results Short CBC 07/10/19 07/11/19 Range/Units 16:28 05:48 WBC 10.50 (4.8-10.8) K/uL Hgb 8.7 L 9.1 L (12.0-16.0) g/dL Hct 29.1 L 30.5 L (37-47) % Plt Count 432 H (130-400) K/uL BMP 07/11/19 05:48 Sodium 138 Potassium 3.7 Chloride 100 Carbon Dioxide 31 BUN 14 Creatinine 0.68 Glucose 158 H Calcium 8.3 L Urine 07/11/19 Range/Units 06:28 Urine Color Dark Yellow Urine Appearance Cloudy A (Clear) Urine pH 5.0 (4.5-7.5) Ur Specific [place] 1.025 (1.000-1.030) Urine Protein Negative (Negative) Urine Glucose (UA) Negative (Negative) Medications Administered Current Inpatient Medications Acetaminophen (Tylenol) 650 mg PO Q4H PRN PRN Reason: Pain or Fever Stop: 08/08/19 22:27 Atenolol (Tenormin) 25 mg PO [facility] Stop: 08/09/19 08:59 Last Admin: 07/11/19 08:11 Dose: 25 mg Documented by: Dextrose (Dextrose 50%) 25 - 50 ml IV UD PRN; Protocol PRN Reason: Hypoglycemia Protocol Stop: 08/08/19 22:44 Glucagon (Glucagen) 1 mg IM UD PRN; Protocol PRN Reason: Hypoglycemia Protocol Stop: 08/08/19 22:44 Glucose (Glucose 40%) 15 - 30 gm PO UD PRN; Protocol PRN Reason: Hypoglycemia Protocol Stop: 08/08/19 22:44 Glucose (Dex4 Glucose) 4 - 8 tabs PO UD PRN; Protocol PRN Reason: Hypoglycemia Protocol Stop: 08/08/19 22:44 Hydrochlorothiazide (Hctz) 25 mg PO [facility] Stop: 08/10/19 08:59 Last Admin: 07/11/19 08:11 Dose: 25 mg Documented by: Pantoprazole Sodium 40 mg/ (Dextrose) 100 mls @ 20 mls/hr IV Q5H [facility] Stop: 08/09/19 02:59 Last Admin: 07/11/19 10:12 Dose: 20 mls/hr Documented by: Insulin Aspart (Novolog Flexpen) 0 units SC [facility] Stop: 08/08/19 22:27 Last Admin: 07/11/19 11:55 Dose: 4 units Documented by: Magnesium Oxide (Mag-Ox) 400 mg PO [facility] Stop: 08/09/19 08:59 Last Admin: 07/11/19 08:11 Dose: 400 mg Documented by: Miscellaneous (Carbohydrates For Hypoglycemia) 15 - 30 gm PO UD PRN PRN Reason: Hypoglycemia Treatment Stop: 08/08/19 22:44 Nitroglycerin (Nitrostat) 0.4 mg SL UD PRN PRN Reason: Chest Pain Stop: 08/08/19 22:27 Ondansetron HCl (Zofran) 4 mg IV Q6H PRN PRN Reason: Nausea Stop: 08/08/19 22:27 (1) Anemia Anemia type: unspecified type Qualified Code(s): D64.9 - Anemia, unspecified
--- NOTE | 2019-07-11 13:58 | Progress Note ---
DATE: 07/11/2019 HISTORY OF PRESENT ILLNESS: Angela is doing well today. She is sitting in her chair, eating with her sister and denies any abdominal pain. She has had no signs of further bleeding. She denies N/V. PHYSICAL EXAMINATION: VITAL SIGNS: Most recent blood pressure is 108/69, pulse is 63, temperature is 37.1. SKIN: Anicteric. HEENT: Show anicteric sclerae. MOUTH: clear of lesions with moist mucous membranes. CHEST: Clear. HEART: Regular. ABDOMEN: Benign with good bowel sounds and no rebound tenderness. NEUROLOGIC: She is alert and oriented x3 and grossly intact. LABORATORY DATA: Show that her hemoglobin has stayed stable and this morning was 9. IMPRESSION: A self-limited upper gastrointestinal bleeding, most likely related to aspirin and Plavix. Given her abnormal CAT scan and her bleeding and upper endoscopy would be important in ruling out more sinister pathology besides just a benign peptic ulcer disease. I will arrange for this test for tomorrow and she is agreeable with this plan. Cont. PPI and will make her NPO after MN. MTDD
[2019-07-11] MEDS: ACETAMINOPHEN 325 MG TAB PO PRN (19:26)
[2019-07-12] MEDS: PANTOprazole 40 MG in DEXTROSE 5% 100 ML IV SCH ×2 (04:13→08:52)
[2019-07-12 05:53] LABS: Basophils # (auto) 0.03 K/uL (0-0.2); Basophils % (auto) 0.2 %; Eosinophils # (auto) 0.29 K/uL (0-0.5); Eosinophils % (auto) 2.3 %; Hematocrit (blood only) 29.2 % (37-47); Hemoglobin 8.7 g/dL (12.0-16.0); Immature Granulocytes # (auto) 0.06 K/uL (0.00-0.02); Immature Granulocytes % (auto) 0.5 %; Lymphocytes # (auto) 1.07 K/uL (1.2-3.4); Lymphocytes % (auto) 8.6 %; Mean Corpuscular Hemoglobin 26.4 pg (25-34); Mean Corpuscular Hgb Conc 29.8 g/dL (32-36); Mean Corpuscular Volume 88.8 fL (80-100); Mean Platelet Volume 10.3 fL (7.4-10.4); Monocytes # (auto) 1.36 K/uL (0.11-0.59); Neutrophils # (auto) 9.61 K/uL (1.4-6.5); Neutrophils % (auto) 77.4 %; Nucleated RBC # (auto) 0.05 K/uL (0-0); Nucleated RBC % (auto) 0.4 %; Platelet Count 438 K/uL (130-400); RDW Coefficient of Variation 17.6 % (11.5-14.5); Red Blood Count 3.29 M/uL (4.2-5.4); White Blood Count 12.42 K/uL (4.8-10.8)
[2019-07-12 06:19] LABS: BUN Creatinine Ratio 13.5 (10-20); Calcium 7.9 mg/dl (8.5-10.1); Creatinine Clr Calc Pharmacy 94.4 ml/min; Est GFR (African American) 96.3; Est GFR (Non-African American) 83.1; Magnesium 1.9 mg/dl (1.8-2.4); Potassium 3.3 mmol/L (3.5-5.1)
[2019-07-12] MEDS: MAGNESIUM OXIDE 400 MG TAB PO SCH (07:47)
[2019-07-12] MEDS: POTASSIUM CHLORIDE / WTR 10 MEQ/100 ML PLCT IV SCH ×2 (07:47→09:39)
[2019-07-12] MEDS: ATENOLOL 25 MG TABLET PO SCH (07:47)
[2019-07-12] MEDS: hydroCHLOROthiazide 25 MG TAB PO SCH (07:47)
[2019-07-12] MEDS: INSULIN ASPART 100 UNITS/ML 3 ML PEN SC SCH ×4 (07:50→21:37)
--- NOTE | 2019-07-12 08:14 | Hospitalist Progress Note ---
Date of Service July 12, 2019 Assessment & Plan (1) Melena: Has history of gastric polyp removed about 8 years back and no EGD following that Admitted with the 2 days history of loose black tarry stool Denies any use of NSAID use outside her usual aspirin and Plavix No more black tarry stools since admission Complains to have dizziness on ambulation but denies any chest pain and/or palpitation Hemoglobin remains stable at 9.0 Hemodynamically stable Has been on Protonix drip and n.p.o. for now Gastroenterology consulted-appreciate input and recommendation No more melena since admission and hemoglobin remains stable Tolerating liquids orally GI bleed related to ASA and Plavix therapy now resolved with holding of these medications. Following EGD with a recommendation from GI for Plavix to continue as she has factor V Leiden deficiency We will discuss with the GI (2) Anemia: Secondary to upper GI blood loss Hemoglobin remains stable at 9.1 on 07/11 and 8.7 on 07/12 (3) Dizziness: Likely secondary to low hemoglobin Denies any symptoms at rest (4) Diabetes: Will check hemoglobin A1c Place her on sliding scale insulin coverage (5) Sleep apnea: History of sleep apnea but does not tolerate CPAP and BiPAP No acute symptoms Plans to have an outpatient sleep study and agreeable to go by the recommendation (6) Hypertension: BP is controlled Has been on hydrochlorothiazide Has leg edema Echocardiogram showed; normal LV chamber size with mild concentric LVH, normal LV systolic function, EF 65 to 70%, no segmental left ventricular wall motion abnormalities, grade 1 diastolic dysfunction and no significant valvular pathology. (7) Factor V Leiden mutation: Has been on aspirin and Plavix Aspirin and Plavix are on hold Worried about not having Plavix and/or aspirin We will discuss with internal control analyst/kitchen supervisor about restarting at least Plavix DVT prophylaxis SCDs CODE STATUS Full Subjective 07/10 The patient was seen and examined in telemetry unit She is a 68-year-old female with past medical history significant for diabetes, hypertension, sleep apnea, noncompliant with continuous positive airway pressure, history of cerebrovascular accident about 8 years ago andfactor V Leiden deficiency and since then she is on aspirin and Plavix since last 8 years. She was admitted yesterday with the melanotic stool for the last 2 days with diarrhea She denies any abdominal discomfort, any nausea no vomiting, denies any chest pain or palpitation and did not have any bowel movement since admission 07/11 Patient was seen and examined in telemetry unit She complains of weakness and exertional shortness of breath Bowel has moved no definite melena and her hemoglobin remains stable Tolerating liquids Denies any abdominal pain, nausea and/or vomiting, no chest pain and/or palpitation 07/12 Patient was seen and examined in telemetry unit She remains stable and her hemoglobin remains stable to She denies any more black stool Denies any cardiac symptoms We will have EGD this afternoon Review of Systems Review of Systems: All systems reviewed and unremarkable except as noted below Respiratory: + dyspnea on exertion Neurologic: + generalized weakness Physical Exam Physical Exam: Lying in bed comfortably Constitutional: well developed, well nourished and + obese; no acute distress Eyes: PERRL, conjunctivae normal, anicteric sclerae ENMT: external ear and nose normal, oropharynx normal Neck: trachea midline, no thyromegaly Respiratory: normal respiratory effort; no respiratory distress Auscultation: lungs clear to auscultation bilaterally and + diminished lung sounds (At the bases) Cardiovascular: Rate/Rhythm: regular rate and regular rhythm Heart Sounds: no murmur Gastrointestinal (Abdomen): Inspection/Auscultation: abdomen normal to inspection and normal bowel sounds Percussion/Palpation: abdomen soft; abdomen nontender Neurologic: moves all extremities; no focal motor deficits Psychiatric: A+Ox3, euthymic affect Lymphatic: no cervical or axillary lymphadenopathy Results & Data Vital Signs (Past 12 Hours) Vital Signs Temp Pulse Resp BP BP Pulse Ox 07/12/19 06:39 36.4 C L 70 19 112/74 97 07/12/19 03:20 36.4 C L 86 19 132/66 94 07/11/19 22:59 36.6 C 77 19 107/56 L 90 Laboratory Results Short CBC 07/12/19 Range/Units 05:26 WBC 12.42 H (4.8-10.8) K/uL Hgb 8.7 L (12.0-16.0) g/dL Hct 29.2 L (37-47) % Plt Count 438 H (130-400) K/uL BMP 07/12/19 05:26 Sodium 137 Potassium 3.3 L Chloride 98 Carbon Dioxide 35 H BUN 10 Creatinine 0.75 Glucose 163 H Calcium 7.9 L Medications Administered Current Inpatient Medications Acetaminophen (Tylenol) 650 mg PO Q4H PRN PRN Reason: Pain or Fever Stop: 08/08/19 22:27 Last Admin: 07/12/19 11:59 Dose: 650 mg Documented by: Atenolol (Tenormin) 25 mg PO QAM [facility] Stop: 08/09/19 08:59 Last Admin: 07/12/19 07:47 Dose: 25 mg Documented by: Dextrose (Dextrose 50%) 25 - 50 ml IV UD PRN; Protocol PRN Reason: Hypoglycemia Protocol Stop: 08/08/19 22:44 Glucagon (Glucagen) 1 mg IM UD PRN; Protocol PRN Reason: Hypoglycemia Protocol Stop: 08/08/19 22:44 Glucose (Glucose 40%) 15 - 30 gm PO UD PRN; Protocol PRN Reason: Hypoglycemia Protocol Stop: 08/08/19 22:44 Glucose (Dex4 Glucose) 4 - 8 tabs PO UD PRN; Protocol PRN Reason: Hypoglycemia Protocol Stop: 08/08/19 22:44 Hydrochlorothiazide (Hctz) 25 mg PO [facility] Stop: 08/10/19 08:59 Last Admin: 07/12/19 07:47 Dose: 25 mg Documented by: Insulin Aspart (Novolog Flexpen) 0 units SC ACHS [facility] Stop: 08/08/19 22:27 Last Admin: 07/12/19 13:00 Dose: 5 units Documented by: Magnesium Oxide (Mag-Ox) [facility] Stop: 08/09/19 08:59 Last Admin: 07/12/19 07:47 Dose: 400 mg Documented by: Miscellaneous (Carbohydrates For Hypoglycemia) 15 - 30 gm PO UD PRN PRN Reason: Hypoglycemia Treatment Stop: 08/08/19 22:44 Nitroglycerin (Nitrostat) 0.4 mg SL UD PRN PRN Reason: Chest Pain Stop: 08/08/19 22:27 Ondansetron HCl (Zofran) 4 mg IV Q6H PRN PRN Reason: Nausea Stop: 08/08/19 22:27 Pantoprazole Sodium (Protonix) 40 mg PO BID [facility] Stop: 08/11/19 20:59 (1) Anemia Anemia type: unspecified type Qualified Code(s): D64.9 - Anemia, unspecified
--- NOTE | 2019-07-12 08:36 | Gastroenterology Progress Note ---
Date of Service July 12, 2019 Assessment & Plan (1) Melena: (2) Anemia: Pt is a 68 y/o female followed for melena and anemia in setting of Plavix & ASA use, CT suggestive of possible PUD. H/H been stable, she had last BM yesterday which was brown in color. - Monitor H/H; and transfuse prn - Continue PPI IV. - NPO for EGD today by Dr. Helms - GI to give recs after EGD is completed. Supervising Physician Co-Signing Physician Notes I have personally seen and examined the patient with CARO Benito. Her note reflects my exam and findings. I agree with her impression and plan. Stable overnight. For EGD this am. Jovan Helms M.D. Subjective Pt w/o acute events overnight, denies anymore n/v. Had BM yesterday which was brown in color. Denies any abd pain. Denies CP, SOB. Been NPO for EGD today Review of Systems Review of Systems: All systems reviewed & are unremarkable except as noted in HPI & below Physical Exam Constitutional: WD/WN, vitals as above well groomed, cooperative and comfortable Eyes: PERRL, conjunctivae normal, anicteric sclerae ENMT: external ear and nose normal, oropharynx normal Respiratory: normal respiratory effort, lungs clear to auscultation Cardiovascular: RRR, no murmur, no edema Gastrointestinal (Abdomen): Inspection/Auscultation: + hypoactive bowel sounds Percussion/Palpation: + abdomen tender (epigastric ) and abdomen soft Skin: no rashes, warm and dry no jaundice Psychiatric: A+Ox3, euthymic affect Lymphatic: + lymphedema (generalized edema bilateral LE ) Results & Data Vital Signs (Past 12 Hours) Vital Signs Temp Pulse Resp BP BP Pulse Ox 07/12/19 06:39 36.4 C L 70 19 112/74 97 07/12/19 03:20 36.4 C L 86 19 132/66 94 07/11/19 22:59 36.6 C 77 19 107/56 L 90 Laboratory Results Laboratory Results - last 72 hr 07/09/19 07/09/19 07/09/19 17:43 17:43 17:43 WBC 13.48 H RBC 3.57 L Hgb 9.5 L Hct 30.4 L MCV 85.2 MCH 26.6 MCHC 31.3 L RDW Std Deviation 50.9 H RDW Coeff of Mary [place] 16.9 H Plt Count 466 H MPV 9.9 Immature Gran % (Auto) 0.3 Neut % (Auto) 80.4 Lymph % (Auto) 8.5 [place] % (Auto) 9.5 Eos % (Auto) 1.2 Baso % (Auto) 0.1 Immature Gran # (Auto) 0.04 H Neut # (Auto) 10.84 H Lymph # (Auto) 1.14 L [place] # (Auto) 1.28 H Eos # (Auto) 0.16 Baso # (Auto) 0.02 Absolute Nucleated RBC 0.04 H Nucleated RBC % (auto) 0.3 PT INR APTT PTT Ratio Sodium 137 Potassium 3.4 L Chloride 97 L Carbon Dioxide 29 Anion Gap 11.0 BUN 35 H Creatinine 0.79 Est Cr Clr Drug Dosing 91.5 Est GFR ( Amer) 90.4 Est GFR (Non-Af Amer) 78.0 BUN/Creatinine Ratio 43.9 H Glucose 123 H POC Glucose Estimat Average Glucose Hemoglobin A1c Calcium 8.5 Phosphorus 3.4 Magnesium Total Bilirubin 0.8 Direct Bilirubin 0.2 AST 10 L ALT 21 Alkaline Phosphatase 73 Troponin I < 0.015 Total Protein 6.3 L Albumin 3.2 L Globulin 3.1 Albumin/Globulin Ratio 1.0 Lipase 188 Urine Color Urine Appearance Urine pH Ur Specific [place] Urine Protein Urine Glucose (UA) Urine Ketones Urine Blood Urine Nitrite Urine Bilirubin Urine Urobilinogen Ur Leukocyte Esterase Urine WBC (Auto) Urine RBC (Auto) U Hyaline Cast (Auto) U Epithel Cells (Auto) Urine Bacteria (Auto) Ethyl Alcohol mg/dL Blood Type A Positive Antibody Screen NEGATIVE 07/09/19 07/09/19 07/09/19 17:43 17:43 17:43 WBC RBC Hgb Hct MCV MCH MCHC RDW Std Deviation RDW Coeff of [place] Plt Count MPV Immature Gran % (Auto) Neut % (Auto) Lymph % (Auto) [place] % (Auto) Eos % (Auto) Baso % (Auto) Immature Gran # (Auto) Neut # (Auto) Lymph # (Auto) [place] # (Auto) Eos # (Auto) Baso # (Auto) Absolute Nucleated RBC Nucleated RBC % (auto) PT 10.6 INR 1.0 APTT 20.5 L PTT Ratio 0.8 Sodium Potassium Chloride Carbon Dioxide Anion Gap BUN Creatinine Est Cr Clr Drug Dosing Est GFR ( Amer) Est GFR (Non-Af Amer) BUN/Creatinine Ratio Glucose POC Glucose Estimat Average Glucose Hemoglobin A1c Calcium Phosphorus Magnesium 2.0 Total Bilirubin Direct Bilirubin AST ALT Alkaline Phosphatase Troponin I Total Protein Albumin Globulin Albumin/Globulin Ratio Lipase Urine Color Urine Appearance Urine pH Ur Specific [place] Urine Protein Urine Glucose (UA) Urine Ketones Urine Blood Urine Nitrite Urine Bilirubin Urine Urobilinogen Ur Leukocyte Esterase Urine WBC (Auto) Urine RBC (Auto) U Hyaline Cast (Auto) U Epithel Cells (Auto) Urine Bacteria (Auto) Ethyl Alcohol mg/dL < 3.0 Blood Type Antibody Screen 07/09/19 07/10/19 07/10/19 22:48 00:09 05:31 WBC 12.47 H RBC 3.38 L Hgb 9.5 L 9.0 L Hct 30.5 L 29.0 L MCV 85.8 MCH 26.6 MCHC 31.0 L RDW Std Deviation 52.4 H RDW Coeff of [place] 17.0 H Plt Count 434 H MPV 9.8 Immature Gran % (Auto) 0.5 Neut % (Auto) 73.4 Lymph % (Auto) 10.5 [place] % (Auto) 13.8 Eos % (Auto) 1.6 Baso % (Auto) 0.2 Immature Gran # (Auto) 0.06 H Neut # (Auto) 9.15 H Lymph # (Auto) 1.31 [place] # (Auto) 1.72 H Eos # (Auto) 0.20 Baso # (Auto) 0.03 Absolute Nucleated RBC 0.03 H Nucleated RBC % (auto) 0.3 PT INR APTT PTT Ratio Sodium Potassium Chloride Carbon Dioxide Anion Gap BUN Creatinine Est Cr Clr Drug Dosing Est GFR ( Amer) Est GFR (Non-Af Amer) BUN/Creatinine Ratio Glucose POC Glucose 140 H Estimat Average Glucose Hemoglobin A1c Calcium Phosphorus Magnesium Total Bilirubin Direct Bilirubin AST ALT Alkaline Phosphatase Troponin I Total Protein Albumin Globulin Albumin/Globulin Ratio Lipase Urine Color Urine Appearance Urine pH Ur Specific [place] Urine Protein Urine Glucose (UA) Urine Ketones Urine Blood Urine Nitrite Urine Bilirubin Urine Urobilinogen Ur Leukocyte Esterase Urine WBC (Auto) Urine RBC (Auto) U Hyaline Cast (Auto) U Epithel Cells (Auto) Urine Bacteria (Auto) Ethyl Alcohol mg/dL Blood Type Antibody Screen 07/10/19 07/10/19 07/10/19 05:31 05:31 07:25 WBC RBC Hgb Hct MCV MCH MCHC RDW Std Deviation RDW Coeff of [place] Plt Count MPV Immature Gran % (Auto) Neut % (Auto) Lymph % (Auto) [place] % (Auto) Eos % (Auto) Baso % (Auto) Immature Gran # (Auto) Neut # (Auto) Lymph # (Auto) [place] # (Auto) Eos # (Auto) Baso # (Auto) Absolute Nucleated RBC Nucleated RBC % (auto) PT INR APTT PTT Ratio Sodium 137 Potassium 3.4 L Chloride 97 L Carbon Dioxide 33 H Anion Gap 7.0 BUN 25 H Creatinine 0.68 Est Cr Clr Drug Dosing 104.5 Est GFR ( Amer) 105.6 Est GFR (Non-Af Amer) 91.2 BUN/Creatinine Ratio 37.0 H Glucose 167 H POC Glucose 193 H Estimat Average Glucose 189 Hemoglobin A1c 8.2 H Calcium 8.0 L Phosphorus Magnesium 2.0 Total Bilirubin Direct Bilirubin AST ALT Alkaline Phosphatase Troponin I Total Protein Albumin Globulin Albumin/Globulin Ratio Lipase Urine Color Urine Appearance Urine pH Ur Specific [place] Urine Protein Urine Glucose (UA) Urine Ketones Urine Blood Urine Nitrite Urine Bilirubin Urine Urobilinogen Ur Leukocyte Esterase Urine WBC (Auto) Urine RBC (Auto) U Hyaline Cast (Auto) U Epithel Cells (Auto) Urine Bacteria (Auto) Ethyl Alcohol mg/dL Blood Type Antibody Screen 07/10/19 07/10/19 07/10/19 10:42 11:41 16:01 WBC RBC Hgb 8.9 L Hct 29.1 L MCV MCH MCHC RDW Std Deviation RDW Coeff of [place] Plt Count MPV Immature Gran % (Auto) Neut % (Auto) Lymph % (Auto) [place] % (Auto) Eos % (Auto) Baso % (Auto) Immature Gran # (Auto) Neut # (Auto) Lymph # (Auto) [place] # (Auto) Eos # (Auto) Baso # (Auto) Absolute Nucleated RBC Nucleated RBC % (auto) PT INR APTT PTT Ratio Sodium Potassium Chloride Carbon Dioxide Anion Gap BUN Creatinine Est Cr Clr Drug Dosing Est GFR ( Amer) Est GFR (Non-Af Amer) BUN/Creatinine Ratio Glucose POC Glucose 163 H 138 H Estimat Average Glucose Hemoglobin A1c Calcium Phosphorus Magnesium Total Bilirubin Direct Bilirubin AST ALT Alkaline Phosphatase Troponin I Total Protein Albumin Globulin Albumin/Globulin Ratio Lipase Urine Color Urine Appearance Urine pH Ur Specific [place] Urine Protein Urine Glucose (UA) Urine Ketones Urine Blood Urine Nitrite Urine Bilirubin Urine Urobilinogen Ur Leukocyte Esterase Urine WBC (Auto) Urine RBC (Auto) U Hyaline Cast (Auto) U Epithel Cells (Auto) Urine Bacteria (Auto) Ethyl Alcohol mg/dL Blood Type Antibody Screen 07/10/19 07/10/19 07/11/19 16:28 20:09 05:48 WBC 10.50 RBC 3.47 L Hgb 8.7 L 9.1 L Hct 29.1 L 30.5 L MCV 87.9 MCH 26.2 MCHC 29.8 L RDW Std Deviation 54.6 H RDW Coeff of [place] 17.7 H Plt Count 432 H MPV 10.3 Immature Gran % (Auto) 0.3 Neut % (Auto) 79.5 Lymph % (Auto) 10.1 [place] % (Auto) 7.5 Eos % (Auto) 2.3 Baso % (Auto) 0.3 Immature Gran # (Auto) 0.03 H Neut # (Auto) 8.35 H Lymph # (Auto) 1.06 L [place] # (Auto) 0.79 H Eos # (Auto) 0.24 Baso # (Auto) 0.03 Absolute Nucleated RBC 0.03 H Nucleated RBC % (auto) 0.3 PT INR APTT PTT Ratio Sodium Potassium Chloride Carbon Dioxide Anion Gap BUN Creatinine Est Cr Clr Drug Dosing Est GFR ( Amer) Est GFR (Non-Af Amer) BUN/Creatinine Ratio Glucose POC Glucose 133 H Estimat Average Glucose Hemoglobin A1c Calcium Phosphorus Magnesium Total Bilirubin Direct Bilirubin AST ALT Alkaline Phosphatase Troponin I Total Protein Albumin Globulin Albumin/Globulin Ratio Lipase Urine Color Urine Appearance Urine pH Ur Specific [place] Urine Protein Urine Glucose (UA) Urine Ketones Urine Blood Urine Nitrite Urine Bilirubin Urine Urobilinogen Ur Leukocyte Esterase Urine WBC (Auto) Urine RBC (Auto) U Hyaline Cast (Auto) U Epithel Cells (Auto) Urine Bacteria (Auto) Ethyl Alcohol mg/dL Blood Type Antibody Screen 07/11/19 07/11/19 07/11/19 05:48 06:28 07:34 WBC RBC Hgb Hct MCV MCH MCHC RDW Std Deviation RDW Coeff of [place] Plt Count MPV Immature Gran % (Auto) Neut % (Auto) Lymph % (Auto) [place] % (Auto) Eos % (Auto) Baso % (Auto) Immature Gran # (Auto) Neut # (Auto) Lymph # (Auto) [place] # (Auto) Eos # (Auto) Baso # (Auto) Absolute Nucleated RBC Nucleated RBC % (auto) PT INR APTT PTT Ratio Sodium 138 Potassium 3.7 Chloride 100 Carbon Dioxide 31 Anion Gap 7.0 BUN 14 Creatinine 0.68 Est Cr Clr Drug Dosing 104.1 Est GFR ( Amer) 105.6 Est GFR (Non-Af Amer) 91.2 BUN/Creatinine Ratio 20.6 H Glucose 158 H POC Glucose 159 H Estimat Average Glucose Hemoglobin A1c Calcium 8.3 L Phosphorus Magnesium 2.0 Total Bilirubin Direct Bilirubin AST ALT Alkaline Phosphatase Troponin I Total Protein Albumin Globulin Albumin/Globulin Ratio Lipase Urine Color Dark Yellow Urine Appearance Cloudy A Urine pH 5.0 Ur Specific [place] 1.025 Urine Protein Negative Urine Glucose (UA) Negative Urine Ketones Trace H Urine Blood Negative Urine Nitrite Negative Urine Bilirubin Negative Urine Urobilinogen Negative Ur Leukocyte Esterase Negative Urine WBC (Auto) 1-5 Urine RBC (Auto) 0-4 U Hyaline Cast (Auto) 0 U Epithel Cells (Auto) >30 H Urine Bacteria (Auto) 1+ H Ethyl Alcohol mg/dL Blood Type Antibody Screen 07/11/19 07/11/19 07/11/19 11:46 16:08 20:39 WBC RBC Hgb Hct MCV MCH MCHC RDW Std Deviation RDW Coeff of [place] Plt Count MPV Immature Gran % (Auto) Neut % (Auto) Lymph % (Auto) [place] % (Auto) Eos % (Auto) Baso % (Auto) Immature Gran # (Auto) Neut # (Auto) Lymph # (Auto) [place] # (Auto) Eos # (Auto) Baso # (Auto) Absolute Nucleated RBC Nucleated RBC % (auto) PT INR APTT PTT Ratio Sodium Potassium Chloride Carbon Dioxide Anion Gap BUN Creatinine Est Cr Clr Drug Dosing Est GFR ( Amer) Est GFR (Non-Af Amer) BUN/Creatinine Ratio Glucose POC Glucose 147 H 150 H 155 H Estimat Average Glucose Hemoglobin A1c Calcium Phosphorus Magnesium Total Bilirubin Direct Bilirubin AST ALT Alkaline Phosphatase Troponin I Total Protein Albumin Globulin Albumin/Globulin Ratio Lipase Urine Color Urine Appearance Urine pH Ur Specific [place] Urine Protein Urine Glucose (UA) Urine Ketones Urine Blood Urine Nitrite Urine Bilirubin Urine Urobilinogen Ur Leukocyte Esterase Urine WBC (Auto) Urine RBC (Auto) U Hyaline Cast (Auto) U Epithel Cells (Auto) Urine Bacteria (Auto) Ethyl Alcohol mg/dL Blood Type Antibody Screen 07/12/19 07/12/19 07/12/19 05:26 05:26 07:26 WBC 12.42 H RBC 3.29 L Hgb 8.7 L Hct 29.2 L MCV 88.8 MCH 26.4 MCHC 29.8 L RDW Std Deviation 55.0 H RDW Coeff of Mary [place] 17.6 H Plt Count 438 H MPV 10.3 Immature Gran % (Auto) 0.5 Neut % (Auto) 77.4 Lymph % (Auto) 8.6 [place] % (Auto) 11.0 Eos % (Auto) 2.3 Baso % (Auto) 0.2 Immature Gran # (Auto) 0.06 H Neut # (Auto) 9.61 H Lymph # (Auto) 1.07 L [place] # (Auto) 1.36 H Eos # (Auto) 0.29 Baso # (Auto) 0.03 Absolute Nucleated RBC 0.05 H Nucleated RBC % (auto) 0.4 PT INR APTT PTT Ratio Sodium 137 Potassium 3.3 L Chloride 98 Carbon Dioxide 35 H Anion Gap 4.0 BUN 10 Creatinine 0.75 Est Cr Clr Drug Dosing 94.4 Est GFR ( Amer) 96.3 Est GFR (Non-Af Amer) 83.1 BUN/Creatinine Ratio 13.5 Glucose 163 H POC Glucose 154 H Estimat Average Glucose Hemoglobin A1c Calcium 7.9 L Phosphorus Magnesium 1.9 Total Bilirubin Direct Bilirubin AST ALT Alkaline Phosphatase Troponin I Total Protein Albumin Globulin Albumin/Globulin Ratio Lipase Urine Color Urine Appearance Urine pH Ur Specific [place] Urine Protein Urine Glucose (UA) Urine Ketones Urine Blood Urine Nitrite Urine Bilirubin Urine Urobilinogen Ur Leukocyte Esterase Urine WBC (Auto) Urine RBC (Auto) U Hyaline Cast (Auto) U Epithel Cells (Auto) Urine Bacteria (Auto) Ethyl Alcohol mg/dL Blood Type Antibody Screen (1) Anemia Anemia type: unspecified type Qualified Code(s): D64.9 - Anemia, unspecified
--- NOTE | 2019-07-12 10:14 | History & Physical Report ---
Date of Service July 12, 2019 Assessment & Plan (1) GI bleed: stable for EGD History of Present Illness Chief Complaint: GI bleed Primary Care Provider: NO PCP pt with GI bleed for EGD Allergies Allergy/AdvReac Type Severity Reaction Status Date / Time ciprofloxacin [From Cipro] Allergy Intermediate Throat Verified 07/09/19 18:06 tightness tetracycline Allergy Intermediate Throat Verified 07/09/19 18:06 tightness Home Medications Home Medications Medication Instructions Recorded Confirmed Type acetaminophen 500 mg PO DIRECTED PRN 07/09/19 07/09/19 History aspirin 81 mg PO QAM 07/09/19 07/09/19 History atenolol 25 mg PO QAM 07/09/19 07/09/19 History clopidogrel [Plavix] 75 mg PO QAM 07/09/19 07/09/19 History hydrochlorothiazide 25 mg PO QAM 07/09/19 07/09/19 History lactobacillus combination no.4 0 mmu cells PO QAM 07/09/19 07/09/19 History [Probiotic] magnesium 250 mg PO QAM 07/09/19 07/09/19 History metformin 1,000 mg PO BID 07/09/19 07/09/19 History pyridoxine (vitamin B6) [Vitamin 100 mg PO QAM 07/09/19 07/09/19 History B-6] Past Med/Surg History Medical History Fluid retention in legs (Chronic) Diabetes (Chronic) Kidney stones Surgical History H/O hysterectomy with oophorectomy History of laminectomy Hx of cholecystectomy Total knee replacement status Family History Other No significant family history Social History Preferred Language: Nigerian Communication Ability: Effective Money Laundering Investigator Required: No Beliefs That Will Affect Care: None Current Living Situation: Alone Other Information That Helps Us Care for You: No Feels Safe at Home: Yes Safety Concerns: Feels Safe At This Time Smoking Status: Former smoker Do You Dip or Chew Tobacco: No ; Second Hand Exposure: No ; Tobacco Cessation Education Requested by Patient: No Hx Alcohol Use: Yes Alcohol type: beer, wine and hard liquor Hx Substance Use: No Physical Exam Constitutional: WD/WN, vitals as above Respiratory: normal respiratory effort, lungs clear to auscultation Cardiovascular: RRR, no murmur, no edema Gastrointestinal (Abdomen): normal bowel sounds, soft, nontender, no hepatosplenomegaly Results & Data Vital Signs (Past 12 Hours) Vital Signs Temp Pulse Resp BP BP Pulse Ox 07/12/19 10:04 36.9 C 70 20 137/68 91 07/12/19 06:39 36.4 C L 70 19 112/74 97 07/12/19 03:20 36.4 C L 86 19 132/66 94 07/11/19 22:59 36.6 C 77 19 107/56 L 90 Code Status & VTE Plan VTE Prophylaxis Plan VTE Prophylaxis will be ordered: Yes
--- NOTE | 2019-07-12 10:20 | Anesthesiology Consultation ---
Date of Service July 12, 2019 Morbid Obesity REESE (non compliant with cpap) Dual antiplatelet therapy NIDDM HTN Chronic peripheral edema CVA Factor V Leiden Acute blood loss anemia Assessment & Plan (1) Encounter for pre-operative examination: Chart Review Chart Review: Acceptable Risk for Surgery and Patient NOT seen in Pre Admission Testing Consults Requested none ASA ASA3 Proposed Anesthesia Anesthesia Type: MAC Risk / Benefits Reviewed With: PT / POA / Parent / Guardian, Accepts Plan and Informed Consent Obtained History Surgery Operation Date: 07/12/19 08:30 Proposed Procedures p Esophagogastroduodenoscopy Dr Scooter Helms Height/Weight Height: 5 ft 3 in Weight: 125.9 kg Allergies Allergy/AdvReac Type Severity Reaction Status Date / Time ciprofloxacin [From Cipro] Allergy Intermediate Throat Verified 07/09/19 18:06 tightness tetracycline Allergy Intermediate Throat Verified 07/09/19 18:06 tightness Medications Home Medications Medication Instructions Recorded Confirmed Last Taken acetaminophen 500 mg PO DIRECTED PRN 07/09/19 07/09/19 07/08/19 AM DOSE - 1000 MG aspirin 81 mg PO QAM 07/09/19 07/09/19 07/09/19 atenolol 25 mg PO QAM 07/09/19 07/09/19 07/09/19 clopidogrel [Plavix] 75 mg PO QAM 07/09/19 07/09/19 07/09/19 hydrochlorothiazide 25 mg PO QAM 07/09/19 07/09/19 07/09/19 lactobacillus combination no.4 0 mmu cells PO QAM 07/09/19 07/09/19 07/09/19 [Probiotic] magnesium 250 mg PO QAM 07/09/19 07/09/19 07/09/19 metformin 1,000 mg PO BID 07/09/19 07/09/19 07/09/19 am dose pyridoxine (vitamin B6) [Vitamin 100 mg PO QAM 07/09/19 07/09/19 07/09/19 B-6] Active Medications Generic Name Dose Route Start Last Admin Trade Name Freq PRN Reason Stop Dose Admin Acetaminophen 650 mg 07/09/19 22:28 07/11/19 19:26 Tylenol PO 08/08/19 22:27 650 mg Q4H PRN Administration Pain or Fever Atenolol 25 mg 07/10/19 09:00 07/12/19 07:47 Tenormin PO 08/09/19 08:59 25 mg QAM STALIN Administration Hydrochlorothiazide 25 mg 07/11/19 09:00 07/12/19 07:47 Hctz PO 08/10/19 08:59 25 mg QAM STALIN Administration Pantoprazole Sodium 40 mg/ 100 mls @ 20 mls/hr 07/10/19 03:00 07/12/19 08:52 Dextrose IV 08/09/19 02:59 20 mls/hr Q5H STALIN Administration Insulin Aspart 0 units 07/09/19 22:28 07/12/19 07:50 Novolog Flexpen SC 08/08/19 22:27 1 units ACHS STALIN Administration Magnesium Oxide 400 mg 07/10/19 09:00 07/12/19 07:47 Mag-Ox PO 08/09/19 08:59 400 mg QAM STALIN Administration NPO Date Last Intake of Fluids: 07/11/19 Time Last Intake of Fluids: 23:45 Date Last Intake of Solids: 07/11/19 Time Last Intake of Solids: 17:00 Past Medical History Medical History Fluid retention in legs (Chronic) Diabetes (Chronic) Kidney stones Exercise / Class Metabolic Activity II 4-5 Yardwork/Stairs/Walk up hill (mild [place]herty with one flight of stairs.) Past Family History Family History Other No significant family history Past Surgical History Surgical History H/O hysterectomy with oophorectomy History of laminectomy Hx of cholecystectomy Total knee replacement status Past Anesthesia History No Hx of Anesthesia Complications and No Family Hx of Anesthesia Complications History of PONV No Hx of PONV and No Hx of Motion Sickness Social History Smoking Status: Former smoker Do You Dip or Chew Tobacco: No Hx Alcohol Use: Yes Alcohol type: beer, wine and hard liquor alcohol intake frequency: holidays/special occasions only Hx Substance Use: No Physical Exam Vital Signs Last Vital Signs Temp 36.9 C 07/12/19 10:04 Pulse 70 07/12/19 10:04 Resp 20 07/12/19 10:04 BP 137/68 07/12/19 10:04 Pulse Ox 91 07/12/19 10:04 ENMT Mouth: no dentition abnormality Thyromental Distance: > or= 3.5 Finger Breadths Mallampati Class: II Neck normal visual inspection Respiratory normal respiratory effort Auscultation: lungs clear to auscultation bilaterally Cardiovascular Rate/Rhythm: regular rate and regular rhythm Psychiatric Orientation: alert Testing Laboratory Results 07/12/19 05:26 07/12/19 05:26 PT 10.6 Seconds (9.0-12.0) 07/09/19 17:43 INR 1.0 (0.9-1.1) 07/09/19 17:43 APTT 20.5 Seconds (21.0-31.0) L 07/09/19 17:43 Hemoglobin A1c 8.2 % (4.5-5.6) H 07/10/19 05:31 Urine Color Dark Yellow 07/11/19 06:28 Urine Appearance Cloudy (Clear) A 07/11/19 06:28 Urine pH 5.0 (4.5-7.5) 07/11/19 06:28 Ur Specific [place] 1.025 (1.000-1.030) 07/11/19 06:28 Urine Protein Negative (Negative) 07/11/19 06:28 Urine Glucose (UA) Negative (Negative) 07/11/19 06:28 Urine Ketones Trace (Negative) H 07/11/19 06:28 Urine Nitrite Negative (Negative) 07/11/19 06:28 Ur Leukocyte Esterase Negative (Negative) 07/11/19 06:28 Urine WBC (Auto) 1-5 /hpf (0-5) 07/11/19 06:28 Urine RBC (Auto) 0-4 /hpf (0-4) 07/11/19 06:28 U Hyaline Cast (Auto) 0 /lpf (0-5) 07/11/19 06:28 U Epithel Cells (Auto) >30 /lpf (0-5) H 07/11/19 06:28 Urine Bacteria (Auto) 1+ (Negative) H 07/11/19 06:28 Blood Type A Positive 07/09/19 17:43 Antibody Screen NEGATIVE 07/09/19 17:43 07/12/19 07:26 POC Glucose 154 H Echocardiogram Date: 08/23/19 EF: 65% LV Function: normal Other Findings: + diastolic dysfunction (grade I) Valvular Disease: + no significant valvular disease
[2019-07-12] MEDS ORDERED: ONDANSETRON INJ 2 MG/ML 2 ML VIAL ONE (10:47)
[2019-07-12] MEDS ORDERED: LIDOCAINE HCL 2% 2 ML VIAL/AMP(20MG/ML) INFIL ONE ×2 (10:47)
[2019-07-12] MEDS ORDERED: PROPOFOL IV EMULSION 10 MG/ML 20 ML VIAL IV ONE (10:47)
[2019-07-12] MEDS ORDERED: GLYCOPYRROLATE 0.2 MG/ML VIAL ONE (10:47)
--- NOTE | 2019-07-12 11:03 | Anesthesiology Progress Note ---
Date of Service July 12, 2019 Anesthesia Post Procedure Vital Signs Vital Signs: Temp Pulse Pulse Pulse Resp BP BP 07/12/19 10:59 93 H 18 118/64 07/12/19 10:44 104 H 18 122/81 07/12/19 10:04 36.9 C 70 20 137/68 07/12/19 06:39 36.4 C L 70 19 112/74 07/12/19 03:20 36.4 C L 86 19 132/66 07/11/19 22:59 36.6 C 77 19 107/56 L 07/11/19 19:42 36.7 C 74 19 122/75 07/11/19 16:00 60 07/11/19 15:37 36.7 C 68 18 121/78 07/11/19 11:17 37.1 C 63 18 108/69 Pulse Ox 07/12/19 10:59 95 07/12/19 10:44 93 07/12/19 10:04 91 07/12/19 06:39 97 07/12/19 03:20 94 07/11/19 22:59 90 07/11/19 19:42 93 07/11/19 16:00 07/11/19 15:37 91 07/11/19 11:17 93 Transfer of Care Handoff Completed per policy Notes Mental Status: alert / awake / arousable Patient Amnestic to Procedure: Yes Nausea / Vomiting: adequately controlled Pain: adequately controlled Airway Patency, RR, SpO2: stable & adequate BP & HR: stable & adequate Hydration State: stable & adequate Anesthetic Complications: no major complications apparent
--- NOTE | 2019-07-12 11:41 | GI REPORT ---
Patient Name: Angela Mcclellan Procedure Date: 07/12/2019 10:17 AM Date of : 1950 Admit Type: Inpatient Age: 68 Gender: Female Attending MD: Jovan Helms MD Procedure: Upper GI endoscopy Providers: Jovan Helms MD Referring MD: Travis Lo Indications: Epigastric abdominal pain, Melena Medicines: See the Anesthesia note for documentation of the administered medications Complications: No immediate complications. Estimated Blood Loss: Estimated blood loss: none. Procedure: Pre-Anesthesia Assessment: - Prior to the procedure, a History and Physical was performed, and patient medications, allergies and sensitivities were reviewed. The patient's tolerance of previous anesthesia was reviewed. - The risks and benefits of the procedure and the sedation options and risks were discussed with the patient. All questions were answered and informed consent was obtained. - Patient identification and proposed procedure were verified prior to the procedure by the physician and the nurse. The procedure was verified in the pre-procedure area. - Pre-procedure physical examination revealed no contraindications to sedation. - After reviewing the risks and benefits, the patient was deemed in satisfactory condition to undergo the procedure. After obtaining informed consent, the endoscope was passed under direct vision. Throughout the procedure, the patient's blood pressure, pulse, and oxygen saturations were monitored continuously. The Scope was introduced through the mouth, and advanced to the third part of duodenum. The upper GI endoscopy was accomplished without difficulty. The patient tolerated the procedure well. Findings: The esophagus was normal. One large non-bleeding cratered gastric ulcer with no stigmata of bleeding was found on the lesser curvature of the stomach. The examined duodenum was normal. The cardia and gastric fundus were normal on retroflexion. Impression: - Normal esophagus. - Large non-bleeding gastric ulcer with no stigmata of bleeding. - No blood seen in stomach. - Normal examined duodenum. - No specimens collected. Recommendation: - [facility]. - Patient needs to be on BID PPI for 1 month than QD indefinitely. - I will arrange a repeat EGD to confirm healing in 4-6 weeks. Jovan Helms M.D. Jovan Helms MD 07/12/2019 11:41:04 AM This report has been signed electronically. Note Initiated On: 07/12/2019 10:17 AM Number of Addenda: 0 I attest to the content of the Intraoperative Record and orders documented therein, exceptions below {[id number]}
[2019-07-12] MEDS: ACETAMINOPHEN 325 MG TAB PO PRN ×2 (11:59→17:23)
[2019-07-12] MEDS: PANTOprazole 40 MG TAB PO SCH (21:34)
[2019-07-13] MEDS: ACETAMINOPHEN 325 MG TAB PO PRN ×3 (05:15→16:30)
[2019-07-13 06:10] LABS: Basophils # (auto) 0.03 K/uL (0-0.2); Basophils % (auto) 0.2 %; Eosinophils # (auto) 0.19 K/uL (0-0.5); Eosinophils % (auto) 1.5 %; Hematocrit (blood only) 28.3 % (37-47); Hemoglobin 8.5 g/dL (12.0-16.0); Immature Granulocytes # (auto) 0.05 K/uL (0.00-0.02); Immature Granulocytes % (auto) 0.4 %; Lymphocytes # (auto) 0.65 K/uL (1.2-3.4); Mean Corpuscular Hemoglobin 26.4 pg (25-34); Mean Corpuscular Volume 87.9 fL (80-100); Mean Platelet Volume 9.8 fL (7.4-10.4); Monocytes # (auto) 1.43 K/uL (0.11-0.59); Neutrophils # (auto) 10.61 K/uL (1.4-6.5); Neutrophils % (auto) 81.9 %; Nucleated RBC # (auto) 0.06 K/uL (0-0); Nucleated RBC % (auto) 0.5 %; Platelet Count 414 K/uL (130-400); RDW Standard Deviation 54.2 fL (36.4-46.3); Red Blood Count 3.22 M/uL (4.2-5.4); White Blood Count 12.96 K/uL (4.8-10.8)
[2019-07-13 06:49] LABS: BUN Creatinine Ratio 15.7 (10-20); Calcium 8.5 mg/dl (8.5-10.1); Creatinine Clr Calc Pharmacy 103.8 ml/min; Est GFR (African American) 105.1; Est GFR (Non-African American) 90.7; Magnesium 1.9 mg/dl (1.8-2.4); Potassium 3.4 mmol/L (3.5-5.1)
--- NOTE | 2019-07-13 07:57 | XRay Report ---
XR chest 1V portable CLINICAL HISTORY: Congestion. COMPARISON STUDY: Chest radiograph July 09, 2019. FINDINGS: Lung volumes are normal. Lungs are clear. There is no pneumothorax or pleural effusion. Mod erate cardiomegaly is noted. Mediastinal contours are normal. There is no evidence for pulmonary tobin a. IMPRESSION: No acute cardiopulmonary findings. Cardiomegaly. Electronically signed by: Vadim Cervantes M.D. 07/13/2019 7:56 AM
[2019-07-13] MEDS: INSULIN ASPART 100 UNITS/ML 3 ML PEN SC SCH ×4 (08:08→20:47)
[2019-07-13] MEDS: ATENOLOL 25 MG TABLET PO SCH (08:10)
[2019-07-13] MEDS: hydroCHLOROthiazide 25 MG TAB PO SCH (08:10)
[2019-07-13] MEDS: MAGNESIUM OXIDE 400 MG TAB PO SCH (08:10)
[2019-07-13] MEDS: PANTOprazole 40 MG TAB PO SCH ×2 (08:10→20:29)
--- NOTE | 2019-07-13 08:26 | Anesthesiology Progress Note ---
Date of Service July 13, 2019 Anesthesia Post Procedure Vital Signs Vital Signs: Temp Pulse Pulse Pulse Resp BP BP 07/13/19 07:21 78 07/13/19 07:03 36.9 C 80 18 114/62 07/13/19 03:24 36.6 C 92 H 19 146/73 H 07/12/19 23:53 36.7 C 84 19 129/77 07/12/19 18:59 36.7 C 77 19 116/64 07/12/19 16:00 68 07/12/19 15:09 36.9 C 67 19 122/75 07/12/19 11:39 36.7 C 86 20 105/62 07/12/19 11:17 88 18 113/64 07/12/19 10:59 93 H 18 118/64 07/12/19 10:44 104 H 18 122/81 07/12/19 10:04 36.9 C 70 20 137/68 Pulse Ox 07/13/19 07:21 07/13/19 07:03 96 07/13/19 03:24 93 07/12/19 23:53 96 07/12/19 18:59 91 07/12/19 16:00 07/12/19 15:09 91 07/12/19 11:39 91 07/12/19 11:17 94 07/12/19 10:59 95 07/12/19 10:44 93 07/12/19 10:04 91 Pain Intensity Head: Pain Intensity: 5 Notes Mental Status: alert / awake / arousable and participated in evaluation Patient Amnestic to Procedure: Yes Nausea / Vomiting: adequately controlled Pain: adequately controlled Airway Patency, RR, SpO2: stable & adequate BP & HR: stable & adequate Hydration State: stable & adequate Anesthetic Complications: no major complications apparent and Pt Satisfied with anesthetic care
--- NOTE | 2019-07-13 10:38 | Hospitalist Progress Note ---
Date of Service July 13, 2019 Assessment & Plan (1) Melena: Has history of gastric polyp removed about 8 years back and no EGD following that Admitted with the 2 days history of loose black tarry stool Denies any use of NSAID use outside her usual aspirin and Plavix No more black tarry stools since admission Complains to have dizziness on ambulation but denies any chest pain and/or palpitation Hemoglobin remains stable at 9.0 Hemodynamically stable Has been on Protonix drip and n.p.o. for now Gastroenterology consulted-appreciate input and recommendation No more melena since admission and hemoglobin remains stable Tolerating liquids orally GI bleed related to ASA and Plavix therapy now resolved with holding of these medications. Following EGD with a recommendation from GI for Plavix to continue as she has factor V Leiden deficiency We will discuss with the GI EGD showed one large nonbleeding cratered gastric ulcer along the lesser curvature of the stomach Advised to have PPI twice daily for 1 month and then daily We will discuss with the telephoto installer for possible starting of Plavix on discharge (2) Anemia: Secondary to upper GI blood loss Hemoglobin remains stable at 9.1 on 07/11 and 8.7 on 07/12 Hemoglobin 8.5 on 07/13 (3) Dizziness: Likely secondary to low hemoglobin Denies any symptoms at rest We will get PT and OT evaluation (4) Diabetes: Will check hemoglobin A1c Place her on sliding scale insulin coverage (5) Sleep apnea: History of sleep apnea but does not tolerate CPAP and BiPAP No acute symptoms Plans to have an outpatient sleep study and agreeable to go by the recommendation Nocturnal pulse oximetry today 2 step oxygen saturation test tomorrow Likely discharge tomorrow (6) Hypertension: BP is controlled Has been on hydrochlorothiazide Has leg edema Echocardiogram showed; normal LV chamber size with mild concentric LVH, normal LV systolic function, EF 65 to 70%, no segmental left ventricular wall motion abnormalities, grade 1 diastolic dysfunction and no significant valvular pathology. (7) Factor V Leiden mutation: Has been on aspirin and Plavix Aspirin and Plavix are on hold Worried about not having Plavix and/or aspirin We will discuss with porcelain slusher/telephoto installer about restarting at least Plavix DVT prophylaxis SCDs CODE STATUS Full Subjective 07/10 The patient was seen and examined in telemetry unit She is a 68-year-old female with past medical history significant for diabetes, hypertension, sleep apnea, noncompliant with continuous positive airway pressure, history of cerebrovascular accident about 8 years ago andfactor V Leiden deficiency and since then she is on aspirin and Plavix since last 8 years. She was admitted yesterday with the melanotic stool for the last 2 days with diarrhea She denies any abdominal discomfort, any nausea no vomiting, denies any chest pain or palpitation and did not have any bowel movement since admission 07/11 Patient was seen and examined in telemetry unit She complains of weakness and exertional shortness of breath Bowel has moved no definite melena and her hemoglobin remains stable Tolerating liquids Denies any abdominal pain, nausea and/or vomiting, no chest pain and/or palpitation 07/12 Patient was seen and examined in telemetry unit She remains stable and her hemoglobin remains stable to She denies any more black stool Denies any cardiac symptoms We will have EGD this afternoon 07/13 The patient was seen and examined in telemetry unit She complains of generalized weakness and occasional shortness of breath She has been using oxygen and feels better when she uses it but she does not want to have it prescribed for her Denies any abdominal pain, nausea and vomiting Status post EGD-noted to have nonbleeding gastric ulcer Will have a nocturnal pulse oximetry today and to do steps tomorrow before discharge Review of Systems Review of Systems: All systems reviewed and unremarkable except as noted below Respiratory: + dyspnea on exertion; no wheezing Gastrointestinal: no abdominal pain, no bloating, no nausea and no vomiting Neurologic: + generalized weakness Physical Exam Physical Exam: Sitting at the age of the bed without any significant discomfort. Looks depressed and anxious Constitutional: well developed, well nourished and + obese; no acute distress Eyes: PERRL, conjunctivae normal, anicteric sclerae ENMT: external ear and nose normal, oropharynx normal Neck: trachea midline, no thyromegaly Respiratory: normal respiratory effort; no respiratory distress Auscultation: lungs clear to auscultation bilaterally and + diminished lung sounds (At the bases) Cardiovascular: Rate/Rhythm: regular rate and regular rhythm Heart Sounds: no murmur Gastrointestinal (Abdomen): Inspection/Auscultation: abdomen normal to inspection and normal bowel sounds Percussion/Palpation: abdomen soft; abdomen nontender Neurologic: moves all extremities; no focal motor deficits Psychiatric: A+Ox3, euthymic affect Lymphatic: no cervical or axillary lymphadenopathy Results & Data Vital Signs (Past 12 Hours) Vital Signs Temp Pulse Pulse Resp BP BP Pulse Ox 07/13/19 07:21 78 07/13/19 07:03 36.9 C 80 18 114/62 96 07/13/19 03:24 36.6 C 92 H 19 146/73 H 93 07/12/19 23:53 36.7 C 84 19 129/77 96 Laboratory Results Short CBC 07/13/19 Range/Units 05:46 WBC 12.96 H (4.8-10.8) K/uL Hgb 8.5 L (12.0-16.0) g/dL Hct 28.3 L (37-47) % Plt Count 414 H (130-400) K/uL BMP 07/13/19 05:46 Sodium 134 L Potassium 3.4 L Chloride 92 L Carbon Dioxide 35 H BUN 11 Creatinine 0.69 Glucose 156 H Calcium 8.5 Medications Administered Current Inpatient Medications Acetaminophen (Tylenol) 650 mg PO Q4H PRN PRN Reason: Pain or Fever Stop: 08/08/19 22:27 Last Admin: 07/13/19 09:13 Dose: 650 mg Documented by: Atenolol (Tenormin) 25 mg PO [facility] Stop: 08/09/19 08:59 Last Admin: 07/13/19 08:10 Dose: 25 mg Documented by: Dextrose (Dextrose 50%) 25 - 50 ml IV UD PRN; Protocol PRN Reason: Hypoglycemia Protocol Stop: 08/08/19 22:44 Glucagon (Glucagen) 1 mg IM UD PRN; Protocol PRN Reason: Hypoglycemia Protocol Stop: 08/08/19 22:44 Glucose (Glucose 40%) 15 - 30 gm PO UD PRN; Protocol PRN Reason: Hypoglycemia Protocol Stop: 08/08/19 22:44 Glucose (Dex4 Glucose) 4 - 8 tabs PO UD PRN; Protocol PRN Reason: Hypoglycemia Protocol Stop: 08/08/19 22:44 [facility] (Hctz) [facility] Stop: 08/10/19 08:59 Last Admin: 07/13/19 08:10 Dose: 25 mg Documented by: Insulin Aspart (Novolog Flexpen) 0 units SC ACHS [facility] Stop: 08/08/19 22:27 Last Admin: 07/13/19 08:08 Dose: 5 units Documented by: Magnesium Oxide (Mag-Ox) 400 mg PO QAM [facility] Stop: 08/09/19 08:59 Last Admin: 07/13/19 08:10 Dose: 400 mg Documented by: Miscellaneous (Carbohydrates For Hypoglycemia) 15 - 30 gm PO UD PRN PRN Reason: Hypoglycemia Treatment Stop: 08/08/19 22:44 Nitroglycerin (Nitrostat) 0.4 mg SL UD PRN PRN Reason: Chest Pain Stop: 08/08/19 22:27 Ondansetron HCl (Zofran) 4 mg IV Q6H PRN PRN Reason: Nausea Stop: 08/08/19 22:27 Pantoprazole Sodium (Protonix) 40 mg PO BID [facility] Stop: 08/11/19 20:59 Last Admin: 07/13/19 08:10 Dose: 40 mg Documented by: (1) Anemia Anemia type: unspecified type Qualified Code(s): D64.9 - Anemia, unspecified
[2019-07-13] MEDS ORDERED: SODIUM CHLORIDE 0.9% 250 ML IV PRN (16:09)
[2019-07-13] MEDS ORDERED: FUROSEMIDE 40 MG in SYRINGE 0 ML IV ONE (16:10)
[2019-07-13] MEDS: CLOPIDOGREL BISULFATE 75 MG TAB PO SCH (16:25)
[2019-07-14] MEDS: PANTOprazole 40 MG TAB PO SCH ×2 (07:50→20:37)
[2019-07-14] MEDS: ATENOLOL 25 MG TABLET PO SCH (07:50)
[2019-07-14] MEDS: MAGNESIUM OXIDE 400 MG TAB PO SCH (07:50)
[2019-07-14] MEDS: CLOPIDOGREL BISULFATE 75 MG TAB PO SCH (07:50)
[2019-07-14] MEDS: hydroCHLOROthiazide 25 MG TAB PO SCH (07:50)
[2019-07-14] MEDS: INSULIN ASPART 100 UNITS/ML 3 ML PEN SC SCH ×4 (07:54→20:41)
[2019-07-14] MEDS: ACETAMINOPHEN 325 MG TAB PO PRN ×2 (07:54→15:18)
[2019-07-14 08:37] LABS: Hematocrit (blood only) 30.2 % (37-47); Hemoglobin 9.2 g/dL (12.0-16.0); Mean Corpuscular Hemoglobin 26.9 pg (25-34); Mean Corpuscular Hgb Conc 30.5 g/dL (32-36); Mean Corpuscular Volume 88.3 fL (80-100); Mean Platelet Volume 9.9 fL (7.4-10.4); Nucleated RBC # (auto) 0.07 K/uL (0-0); Nucleated RBC % (auto) 0.5 %; Platelet Count 380 K/uL (130-400); RDW Coefficient of Variation 16.2 % (11.5-14.5); Red Blood Count 3.42 M/uL (4.2-5.4); White Blood Count 12.79 K/uL (4.8-10.8)
[2019-07-14] MEDS ORDERED: POTASSIUM CHLORIDE 20 MEQ TABCR PO ONE (08:45)
[2019-07-14 09:18] LABS: Basophils # (auto) 0.02 K/uL (0-0.2); Basophils % (auto) 0.2 %; Eosinophils # (auto) 0.16 K/uL (0-0.5); Eosinophils % (auto) 1.3 %; Immature Granulocytes # (auto) 0.07 K/uL (0.00-0.02); Immature Granulocytes % (auto) 0.5 %; Lymphocytes # (auto) 1.03 K/uL (1.2-3.4); Lymphocytes % (auto) 8.1 %; Monocytes # (auto) 0.95 K/uL (0.11-0.59); Monocytes % (auto) 7.4 %; Neutrophils # (auto) 10.56 K/uL (1.4-6.5); Neutrophils % (auto) 82.5 %
--- NOTE | 2019-07-14 09:39 | Gastroenterology Progress Note ---
Date of Service July 14, 2019 Assessment & Plan (1) Melena: (2) Anemia: 68 y/o female admitted w/ melena and anemia in setting of Plavix & ASA use, CT suggestive of possible PUD s/p EGD w/ evidence of large non-bleeding gastric ulcer without stigmata of bleeding HGB stable PPI BID x 1 month then daily OP EGD in 4-6 weeks to check for healing Will sign off. Thank you for allowing us to participate in the care of this patient. Please call with any acute changes, questions or concerns. Please see addendum below with additional recommendation from my supervising physician. Supervising Physician Co-Signing Physician Notes Patient is at risk for rebleeding over the next week. From a gastroenterology perspective, Plavix use would not interfere with healing of her gastric ulcer. Patient's regular provider should be involved with any further risk stratification needed. Subjective Pt was seen and evaluated, chart reviewed Respiratory team at bedside conducting testing Offers no GI complaints No abd pain No nausea, vomiting Denies any black or bloody stools No lightheadedness, dizzines, CP EGD: Normal esophagus.Large non-bleeding gastric ulcer with no stigmata ofbleeding. No blood seen in stomach. Normal examined duodenum. No specimens collected. Review of Systems Constitutional: no fever and no chills Respiratory: no cough Cardiovascular: no chest pain Gastrointestinal: no abdominal pain, no coffee ground emesis, no hematemesis, no blood in stools and no melena Physical Exam Constitutional: + obese; no acute distress Neck: trachea midline Respiratory: normal respiratory effort; no respiratory distress Cardiovascular: Rate/Rhythm: regular rate and regular rhythm Gastrointestinal (Abdomen): normal bowel sounds, soft, nontender, no hepatosplenomegaly Skin: no rashes, warm and dry Results & Data Vital Signs (Past 12 Hours) Vital Signs Temp Pulse Pulse Pulse Pulse Pulse Pulse 07/14/19 09:00 94 H 98 H 94 H 100 H 07/14/19 07:24 99 H 07/14/19 07:00 36.7 C 103 H 07/14/19 03:10 36.7 C 106 H 07/13/19 22:58 36.7 C 96 H 07/13/19 21:50 73 Resp Resp Resp Resp Resp BP Pulse Ox 07/14/19 09:00 18 22 20 18 07/14/19 07:24 07/14/19 07:00 18 133/74 93 07/14/19 03:10 16 113/62 91 07/13/19 22:58 20 104/66 94 07/13/19 21:50 Pulse Ox Pulse Ox Pulse Ox Pulse Ox 07/14/19 09:00 93 91 94 80 L 07/14/19 07:24 07/14/19 07:00 07/14/19 03:10 07/13/19 22:58 07/13/19 21:50 98 Laboratory Results 07/14/19 07/14/19 07/13/19 Range/Units 08:29 07:17 20:46 WBC 12.79 H (4.8-10.8) K/uL RBC 3.42 L (4.2-5.4) M/uL Hgb 9.2 L (12.0-16.0) g/dL Hct 30.2 L (37-47) % MCV 88.3 (80-100) fL MCH 26.9 (25-34) pg MCHC 30.5 L (32-36) g/dL RDW Std Deviation 52.0 H (36.4-46.3) fL RDW Coeff of Mary Anne 16.2 H (11.5-14.5) % Plt Count 380 (130-400) K/uL MPV 9.9 (7.4-10.4) fL Immature Gran % (Auto) 0.5 % Neut % (Auto) 82.5 % Lymph % (Auto) 8.1 % [place] % (Auto) 7.4 % Eos % (Auto) 1.3 % Baso % (Auto) 0.2 % Immature Gran # (Auto) 0.07 H (0.00-0.02) K/uL Neut # (Auto) 10.56 H (1.4-6.5) K/uL Lymph # (Auto) 1.03 L (1.2-3.4) K/uL [place] # (Auto) 0.95 H (0.11-0.59) K/uL Eos # (Auto) 0.16 (0-0.5) K/uL Baso # (Auto) 0.02 (0-0.2) K/uL Absolute Nucleated RBC 0.07 H (0-0) K/uL Nucleated RBC % (auto) 0.5 % POC Glucose 162 H 127 H (70-99) Blood Type Antibody Screen Crossmatch 07/13/19 07/13/19 07/13/19 Range/Units 16:33 16:20 11:39 WBC (4.8-10.8) K/uL RBC (4.2-5.4) M/uL Hgb (12.0-16.0) g/dL Hct (37-47) % MCV (80-100) fL MCH (25-34) pg MCHC (32-36) g/dL RDW Std Deviation (36.4-46.3) fL RDW Coeff of Mary Anne (11.5-14.5) % Plt Count (130-400) K/uL MPV (7.4-10.4) fL Immature Gran % (Auto) % Neut % (Auto) % Lymph % (Auto) % [place] % (Auto) % Eos % (Auto) % Baso % (Auto) % Immature Gran # (Auto) (0.00-0.02) K/uL Neut # (Auto) (1.4-6.5) K/uL Lymph # (Auto) (1.2-3.4) K/uL [place] # (Auto) (0.11-0.59) K/uL Eos # (Auto) (0-0.5) K/uL Baso # (Auto) (0-0.2) K/uL Absolute Nucleated RBC (0-0) K/uL Nucleated RBC % (auto) % POC Glucose 161 H 134 H (70-99) Blood Type A Positive Antibody Screen NEGATIVE Crossmatch See Detail (1) Anemia Anemia type: unspecified type Qualified Code(s): D64.9 - Anemia, unspecified
[2019-07-14] MEDS ORDERED: FUROSEMIDE 80 MG in SYRINGE 0 ML IV SCH (11:00)
--- NOTE | 2019-07-14 15:08 | Hospitalist Progress Note ---
Date of Service July 14, 2019 Assessment & Plan (1) Melena: Has history of gastric polyp removed about 8 years back and no EGD following that Admitted with the 2 days history of loose black tarry stool Denies any use of NSAID use outside her usual aspirin and Plavix No more black tarry stools since admission Complains to have dizziness on ambulation but denies any chest pain and/or palpitation Hemoglobin remains stable at 9.0 Hemodynamically stable Has been on Protonix drip and n.p.o. for now Gastroenterology consulted-appreciate input and recommendation No more melena since admission and hemoglobin remains stable Tolerating liquids orally GI bleed related to ASA and Plavix therapy now resolved with holding of these medications. Following EGD with a recommendation from GI for Plavix to continue as she has factor V Leiden deficiency We will discuss with the GI EGD showed one large nonbleeding cratered gastric ulcer along the lesser curvature of the stomach Advised to have PPI twice daily for 1 month and then daily We will discuss with the public health internship for possible starting of Plavix on discharge Received 1 unit of blood transfusion Hemoglobin more than 9 today Plavix added (2) Shortness of breath: Has been complaining of shortness of breath for a while-seems to be multifactorial including sleep apnea and obesity and not due to cardiac condition Complains to have more leg swelling on admission Chest x-ray did not show any CHF and/or pleural effusion Echocardiogram: Normal LV chamber size with mild concentric LVH, normal systolic function with EF of 65 to 70%, no segmental wall motion abnormalities, grade 1 diastolic dysfunction and no significant valvular pathology Nocturnal pulse oximetry showed the requirement for continuous 2 L nasal cannula oxygen 2 steps O2 saturation test suggested 2 L of oxygen continuously She is very anxious that she will need to go with oxygen She has a strongly advised to have a repeat sleep study as an outpatient We will try to give her 80 mg of intravenous Lasix today and see if there is any improvement of her symptoms and or Edema (3) Anemia: Secondary to upper GI blood loss Hemoglobin remains stable at 9.1 on 07/11 and 8.7 on 07/12 Hemoglobin 8.5 on 07/13 Received 1 unit of blood transfusion Hemoglobin more than 9.0 Okay to be discharged tomorrow (4) Dizziness: Likely secondary to low hemoglobin Denies any symptoms at rest We will get PT and OT evaluation (5) Diabetes: Will check hemoglobin A1c Place her on sliding scale insulin coverage (6) Sleep apnea: History of sleep apnea but does not tolerate CPAP and BiPAP No acute symptoms Plans to have an outpatient sleep study and agreeable to go by the recommendation Nocturnal pulse oximetry today 2 step oxygen saturation test tomorrow Likely discharge tomorrow (7) Hypertension: BP is controlled Has been on hydrochlorothiazide Has leg edema Echocardiogram showed; normal LV chamber size with mild concentric LVH, normal LV systolic function, EF 65 to 70%, no segmental left ventricular wall motion abnormalities, grade 1 diastolic dysfunction and no significant valvular pathology. (8) Factor V Leiden mutation: Has been on aspirin and Plavix Aspirin and Plavix are on hold Worried about not having Plavix and/or aspirin We will discuss with district court reporter/public health internship about restarting at least Plavix DVT prophylaxis SCDs CODE STATUS Full Subjective 07/10 The patient was seen and examined in telemetry unit She is a 68-year-old female with past medical history significant for diabetes, hypertension, sleep apnea, noncompliant with continuous positive airway pressure, history of cerebrovascular accident about 8 years ago andfactor V Leiden deficiency and since then she is on aspirin and Plavix since last 8 years. She was admitted yesterday with the melanotic stool for the last 2 days with diarrhea She denies any abdominal discomfort, any nausea no vomiting, denies any chest p ain or palpitation and did not have any bowel movement since admission 07/11 Patient was seen and examined in telemetry unit She complains of weakness and exertional shortness of breath Bowel has moved no definite melena and her hemoglobin remains stable Tolerating liquids Denies any abdominal pain, nausea and/or vomiting, no chest pain and/or palpitation 07/12 Patient was seen and examined in telemetry unit She remains stable and her hemoglobin remains stable to She denies any more black stool Denies any cardiac symptoms We will have EGD this afternoon 07/13 The patient was seen and examined in telemetry unit She complains of generalized weakness and occasional shortness of breath She has been using oxygen and feels better when she uses it but she does not want to have it prescribed for her Denies any abdominal pain, nausea and vomiting Status post EGD-noted to have nonbleeding gastric ulcer Will have a nocturnal pulse oximetry today and to do steps tomorrow before discharge 07/14 Patient was seen and examined in telemetry unit She has been complaining of more shortness of breath and is very anxious that she is going to need oxygen on discharge She has documented sleep apnea for many years and she has not been using any CPAP and her oxygen at home Her echo has been fairly unremarkable and she does have chronic leg swelling Her hemoglobin remains more than 9 today Denies any chest pain and/or palpitation Review of Systems Review of Systems: All systems reviewed and unremarkable except as noted below Respiratory: + dyspnea on exertion; no wheezing Neurologic: + generalized weakness Physical Exam Physical Exam: Sitting at the age of the bed with some shortness of breath Constitutional: well developed, well nourished and + morbidly obese; no acute distress Eyes: PERRL, conjunctivae normal, anicteric sclerae ENMT: external ear and nose normal, oropharynx normal Neck: trachea midline, no thyromegaly Respiratory: + respiratory distress (Mild to moderate respiratory distress) Auscultation: lungs clear to auscultation bilaterally and + diminished lung sounds (At the bases) Cardiovascular: Rate/Rhythm: regular rate and regular rhythm Heart Sounds: no murmur Gastrointestinal (Abdomen): Inspection/Auscultation: abdomen normal to inspection and normal bowel sounds Percussion/Palpation: abdomen soft; abdomen nontender Musculoskeletal: No acute arthritis in any of the joints Neurologic: moves all extremities; no focal motor deficits Very anxious Psychiatric: A+Ox3, euthymic affect Lymphatic: no cervical or axillary lymphadenopathy Results & Data Vital Signs (Past 12 Hours) Vital Signs Temp Pulse Pulse Pulse Pulse Pulse Pulse 07/14/19 13:47 07/14/19 11:10 36.7 C 71 07/14/19 09:00 94 H 98 H 94 H 100 H 07/14/19 07:24 99 H 07/14/19 07:00 36.7 C 103 H 07/14/19 03:10 36.7 C 106 H Resp Resp Resp Resp Resp BP Pulse Ox 07/14/19 13:47 96 07/14/19 11:10 18 119/81 96 07/14/19 09:00 18 22 20 18 07/14/19 07:24 07/14/19 07:00 18 133/74 93 07/14/19 03:10 16 113/62 91 Pulse Ox Pulse Ox Pulse Ox Pulse Ox 07/14/19 13:47 07/14/19 11:10 07/14/19 09:00 93 91 94 80 L 07/14/19 07:24 07/14/19 07:00 07/14/19 03:10 Laboratory Results Short CBC 07/14/19 Range/Units 08:29 WBC 12.79 H (4.8-10.8) K/uL Hgb 9.2 L (12.0-16.0) g/dL Hct 30.2 L (37-47) % Plt Count 380 (130-400) K/uL Medications Administered Current Inpatient Medications Acetaminophen (Tylenol) 650 mg PO Q4H PRN PRN Reason: Pain or Fever Stop: 08/08/19 22:27 Last Admin: 07/14/19 07:54 Dose: 650 mg Documented by: Atenolol (Tenormin) 25 mg PO [facility] Stop: 08/09/19 08:59 Last Admin: 07/14/19 07:50 Dose: 25 mg Documented by: Clopidogrel Bisulfate (Plavix) 75 mg PO [facility] Stop: 08/12/19 14:44 Last Admin: 07/14/19 07:50 Dose: 75 mg Documented by: Dextrose (Dextrose 50%) 25 - 50 ml IV UD PRN; Protocol PRN Reason: Hypoglycemia Protocol Stop: 08/08/19 22:44 Glucagon (Glucagen) 1 mg IM UD PRN; Protocol PRN Reason: Hypoglycemia Protocol Stop: 08/08/19 22:44 Glucose (Glucose 40%) 15 - 30 gm PO UD PRN; Protocol PRN Reason: Hypoglycemia Protocol Stop: 08/08/19 22:44 Glucose (Dex4 Glucose) 4 - 8 tabs PO UD PRN; Protocol PRN Reason: Hypoglycemia Protocol Stop: 08/08/19 22:44 Hydrochlorothiazide (Hctz) 25 mg PO [facility] Stop: 08/10/19 08:59 Last Admin: 07/14/19 07:50 Dose: 25 mg Documented by: Sodium Chloride (Nss) 250 mls @ 15 mls/hr IV .[id number] PRN PRN Reason: For Transfusion Stop: 08/12/19 16:08 Insulin Aspart (Novolog Flexpen) 0 units SC [facility] Stop: 08/08/19 22:27 Last Admin: 07/14/19 12:13 Dose: 4 units Documented by: Magnesium Oxide (Mag-Ox) 400 mg PO [facility] Stop: 08/09/19 08:59 Last Admin: 07/14/19 07:50 Dose: 400 mg Documented by: Miscellaneous (Carbohydrates For Hypoglycemia) 15 - 30 gm PO UD PRN PRN Reason: Hypoglycemia Treatment Stop: 08/08/19 22:44 Nitroglycerin (Nitrostat) 0.4 mg SL UD PRN PRN Reason: Chest Pain Stop: 08/08/19 22:27 Ondansetron HCl (Zofran) 4 mg IV Q6H PRN PRN Reason: Nausea Stop: 08/08/19 22:27 Pantoprazole Sodium (Protonix) 40 mg PO BID [facility] Stop: 08/11/19 20:59 Last Admin: 07/14/19 07:50 Dose: 40 mg Documented by: (1) Anemia Anemia type: unspecified type Qualified Code(s): D64.9 - Anemia, unspecified
[2019-07-15] MEDS: ACETAMINOPHEN 325 MG TAB PO PRN ×3 (05:36→21:06)
[2019-07-15 06:02] LABS: Basophils # (auto) 0.03 K/uL (0-0.2); Basophils % (auto) 0.2 %; Eosinophils # (auto) 0.26 K/uL (0-0.5); Hematocrit (blood only) 32.2 % (37-47); Hemoglobin 9.6 g/dL (12.0-16.0); Immature Granulocytes # (auto) 0.05 K/uL (0.00-0.02); Immature Granulocytes % (auto) 0.4 %; Lymphocytes # (auto) 0.67 K/uL (1.2-3.4); Lymphocytes % (auto) 5.1 %; Mean Corpuscular Hemoglobin 26.6 pg (25-34); Mean Corpuscular Hgb Conc 29.8 g/dL (32-36); Mean Corpuscular Volume 89.2 fL (80-100); Mean Platelet Volume 10.1 fL (7.4-10.4); Monocytes # (auto) 1.96 K/uL (0.11-0.59); Monocytes % (auto) 14.9 %; Neutrophils # (auto) 10.18 K/uL (1.4-6.5); Neutrophils % (auto) 77.4 %; Nucleated RBC # (auto) 0.03 K/uL (0-0); Nucleated RBC % (auto) 0.2 %; Platelet Count 401 K/uL (130-400); RDW Coefficient of Variation 16.1 % (11.5-14.5); RDW Standard Deviation 51.7 fL (36.4-46.3); Red Blood Count 3.61 M/uL (4.2-5.4); White Blood Count 13.15 K/uL (4.8-10.8)
[2019-07-15 06:42] LABS: BUN Creatinine Ratio 19.8 (10-20); Calcium 8.3 mg/dl (8.5-10.1); Creatinine Clr Calc Pharmacy 117.8 ml/min; Est GFR (African American) 110.1; Magnesium 1.7 mg/dl (1.8-2.4); Potassium 2.8 mmol/L (3.5-5.1)
[2019-07-15] MEDS ORDERED: MAGNESIUM SULFATE / D5W 1 GM/100 ML BAG IV ONE (06:45)
[2019-07-15] MEDS ORDERED: POTASSIUM CHLORIDE 20 MEQ TABCR PO STA (06:45)
[2019-07-15] MEDS: ATENOLOL 25 MG TABLET PO SCH (07:46)
[2019-07-15] MEDS: CLOPIDOGREL BISULFATE 75 MG TAB PO SCH (07:46)
[2019-07-15] MEDS: MAGNESIUM OXIDE 400 MG TAB PO SCH (07:46)
[2019-07-15] MEDS: PANTOprazole 40 MG TAB PO SCH ×2 (07:46→21:03)
[2019-07-15] MEDS: INSULIN ASPART 100 UNITS/ML 3 ML PEN SC SCH ×4 (07:57→21:03)
[2019-07-15 08:02] LABS: Base Excess ABG 19.1 mEq/L (-9-1.8); HCO3 ABG 46 mmol/L (19-24); Oxygen Saturation ABG 93.1 % (90-95); PCO2 ABG 67 mmHg (35-46); PO2 ABG 69 mm/Hg (80-95); pH ABG 7.45 (7.35-7.45)
[2019-07-15 08:08] LABS: Allen Test Pos (Pos)
[2019-07-15] MEDS ORDERED: POTASSIUM CHLORIDE 20 MEQ TABCR PO ONE (09:00)
--- NOTE | 2019-07-15 14:18 | Consultation Report ---
DATE OF CONSULTATION: 07/15/2019 PULMONARY MEDICINE CONSULTATION REASON FOR CONSULTATION: Obstructive sleep apnea. HISTORY OF PRESENT ILLNESS: A 68-year-old white female who moved from [place], [place] in April to live in the same town as her sister. Both are retired. 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 She also was a smoker in the remote past, having quit several decades ago. She has a history of diabetes mellitus, hypertension and apparently close to 10 years ago was diagnosed with obstructive sleep apnea. She never tried a CPAP and she did not wish to do so at that point. She noted certainly in the spring when she got ready to move and packed her belongings in the property that she was very dyspneic with minimal exertion. These symptoms have worsened to the point where she became lightheaded and weak. She has had a CVA approximately 8 years ago and has undergone bilateral knee replacements. She also has a history of factor V Leiden deficiency and has been on aspirin and Plavix for close to 8 years. She presented with black melenic stools and has not established with a primary care physician locally as she could not get an appointment. No previous history of GI bleeding was noted. For details of past medical history, medications, family and social history, I refer you to current and past record. She quit smoking approximately 8 years ago, half a pack a day for 25 years. She presented with acute gastrointestinal bleed and with progressive lower extremity edema. Echocardiography done on admission shows normal LVEF of 65% with grade 1 diastolic dysfunction, right ventricular function appeared normal. Dr. Jovan Helms saw the patient in consultation. He wished to follow her conservatively given her cardiopulmonary issues and was placed on a proton pump inhibitor. He felt the GI bleeding was related to the aspirin and Plavix and felt eventually she should undergo esophagogastroduodenoscopy, which was carried out on 07/12. There was 1 large nonbleeding cratered gastric ulcer with no stigmata of bleeding on the lesser curvature of the stomach. She remains on PPI b.i.d. for 1 month and then a repeat EGD would be carried out in 4-6 weeks. I have been asked to see the patient in consultation because of a rising CO2 with diuresis, increasing pedal edema and her history of obstructive sleep apnea. She gives a history of daytime hypersomnolence and excessive daytime sleepiness, along with loud sonorous snoring at night. For details of past medical history, medications, family and social history, I refer you to current and past record. PHYSICAL EXAMINATION: GENERAL: This is a well-developed, friendly white female requiring O2 supplementation but in no respiratory distress. VITAL SIGNS: Blood pressure 122/80, pulse 72 and regular, respiratory rate 18, temperature 36.8, O2 sat 95% on 2 liters. SKIN: Without lesion. HEENT: Atraumatic, normocephalic, PERRLA, EOMI. Conjunctivae pink. Sclerae nonicteric. Fundi poorly visualized. NECK: Neck veins are not distended at 45 degrees. No obvious adenopathy in the supra or infraclavicular areas. LUNGS: Distant P and A. No audible wheezes. CARDIAC: Regular rate and rhythm. I do not appreciate a gallop. ABDOMEN: Soft, scaphoid. No evidence of hepatosplenomegaly. EXTREMITIES: +1 to +2 pitting edema and negative Homans sign. NEUROLOGICAL: Cranial nerves II-XII grossly intact. No lateralizing signs. DATA: Echocardiogram is noted. EKG on admission shows normal sinus rhythm with a suggestion of anterior wall ischemia. Other laboratory; white count today 13,000, H and H 9.6 and 32.2. The patient demonstrated a sylvie with hemoglobin and hematocrit of 8.9 and 29.1 on admission. ABGs today; pH 7.45, pCO2 of 67, pO2 of 69 on 2 liters. Calculated CO2 44, potassium 2.8 today with diuresis. OVERALL ASSESSMENT: A 68-year-old morbidly obese white female with a previous diagnosis of obstructive sleep apnea and probable cor pulmonale with a degree of pulmonary hypertension (not clearly demonstrated by echocardiogram) with acute gastrointestinal bleed secondary to a gastric ulcer. The patient will require O2 supplementation at least for now and I have discussed this with her and she appears to accept this. She will need a full nocturnal polysomnograph perhaps a split study as an outpatient and almost certainly has obstructive sleep apnea and probable associated pulmonary hypertension. She will also need full pulmonary function studies given her smoking history with a degree of chronic obstructive pulmonary disease suggested. A split nocturnal polysomnograph with CPAP titration with O2 supplementation will be required as an outpatient as well. We will see her in the office on Friday to try to establish her with our practice and we will arrange for her to have primary care physician as well, which has been difficult for her to arrange on her own to date. Thank you very much for this consultation.
--- NOTE | 2019-07-15 15:02 | Hospitalist Progress Note ---
Date of Service July 15, 2019 Assessment & Plan (1) Sleep apnea: History of sleep apnea but does not tolerate CPAP and BiPAP No acute symptoms at presentation Plans to have an outpatient sleep study and agreeable to go by the recommendation Nocturnal pulse oximetry today-suggested 2 L of nasal cannula oxygen continuously 2 step oxygen saturation -suggested 2 L of nasal cannula Noted to have increased CO2 Pulmonary consulted-appreciate input and recommendation We will have outpatient sleep study with CPAP down the line Will repeat PRP, if CO2 level is coming down she will be discharged home today (2) Melena: Has history of gastric polyp removed about 8 years back and no EGD following that Admitted with the 2 days history of loose black tarry stool Denies any use of NSAID use outside her usual aspirin and Plavix No more black tarry stools since admission Complains to have dizziness on ambulation but denies any chest pain and/or palpitation Hemoglobin remains stable at 9.0 Hemodynamically stable Has been on Protonix drip and n.p.o. for now Gastroenterology consulted-appreciate input and recommendation No more melena since admission and hemoglobin remains stable Tolerating liquids orally GI bleed related to ASA and Plavix therapy now resolved with holding of these medications. Following EGD with a recommendation from GI for Plavix to continue as she has factor V Leiden deficiency We will discuss with the GI EGD showed one large nonbleeding cratered gastric ulcer along the lesser curvature of the stomach Advised to have PPI twice daily for 1 month and then daily We will discuss with the rn long term care for possible starting of Plavix on discharge Received 1 unit of blood transfusion Hemoglobin more than 9 today Plavix added No other symptoms (3) Shortness of breath: Has been complaining of shortness of breath for a while-seems to be multifactorial including sleep apnea and obesity and not due to cardiac condition Complains to have more leg swelling on admission Chest x-ray did not show any CHF and/or pleural effusion Echocardiogram: Normal LV chamber size with mild concentric LVH, normal systolic function with EF of 65 to 70%, no segmental wall motion abnormalities, grade 1 diastolic dysfunction and no significant valvular pathology Nocturnal pulse oximetry showed the requirement for continuous 2 L nasal cannula oxygen 2 steps O2 saturation test suggested 2 L of oxygen continuously She is very anxious that she will need to go with oxygen She has a strongly advised to have a repeat sleep study as an outpatient We will try to give her 80 mg of intravenous Lasix today and see if there is any improvement of her symptoms and or Edema Feels better following Lasix Feels a lot better with oxygen (4) Anemia: Secondary to upper GI blood loss Hemoglobin remains stable at 9.1 on 07/11 and 8.7 on 07/12 Hemoglobin 8.5 on 07/13 Received 1 unit of blood transfusion Hemoglobin more than 9.0 Okay to be discharged tomorrow (5) Dizziness: Likely secondary to low hemoglobin Denies any symptoms at rest We will get PT and OT evaluation Has been ambulating with minimal discomfort (6) Diabetes: Will check hemoglobin A1c Place her on sliding scale insulin coverage (7) Hypertension: BP is controlled Has been on hydrochlorothiazide Has leg edema Echocardiogram showed; normal LV chamber size with mild concentric LVH, normal LV systolic function, EF 65 to 70%, no segmental left ventricular wall motion abnormalities, grade 1 diastolic dysfunction and no significant valvular pathology. (8) Factor V Leiden mutation: Has been on aspirin and Plavix Aspirin and Plavix are on hold Worried about not having Plavix and/or aspirin We will discuss with faculty i on call medical assistant/rn long term care about restarting at least Plavix DVT prophylaxis SCDs CODE STATUS Full Likely to go home today or tomorrow Subjective 07/10 The patient was seen and examined in telemetry unit She is a 68-year-old female with past medical history significant for diabetes, hypertension, sleep apnea, noncompliant with continuous positive airway pressure, history of cerebrovascular accident about 8 years ago andfactor V Leiden deficiency and since then she is on aspirin and Plavix since last 8 years. She was admitted yesterday with the melanotic stool for the last 2 days with diarrhea She denies any abdominal discomfort, any nausea no vomiting, denies any chest pain or palpitation and did not have any bowel movement since admission 07/11 Patient was seen and examined in telemetry unit She complains of weakness and exertional shortness of breath Bowel has moved no definite melena and her hemoglobin remains stable Tolerating liquids Denies any abdominal pain, nausea and/or vomiting, no chest pain and/or palpitation 07/12 Patient was seen and examined in telemetry unit She remains stable and her hemoglobin remains stable to She denies any more black stool Denies any cardiac symptoms We will have EGD this afternoon 07/13 The patient was seen and examined in telemetry unit She complains of generalized weakness and occasional shortness of breath She has been using oxygen and feels better when she uses it but she does not want to have it prescribed for her Denies any abdominal pain, nausea and vomiting Status post EGD-noted to have nonbleeding gastric ulcer Will have a nocturnal pulse oximetry today and to do steps tomorrow before discharge 07/14 Patient was seen and examined in telemetry unit She has been complaining of more shortness of breath and is very anxious that she is going to need oxygen on discharge She has documented sleep apnea for many years and she has not been using any CPAP and her oxygen at home Her echo has been fairly unremarkable and she does have chronic leg swelling Her hemoglobin remains more than 9 today Denies any chest pain and/or palpitation 07/15 The patient was seen and examined in telemetry unit She is minimally shortness of breath at rest with the depressed mood Denies any chest pain no palpitation Seems to be not yet ready to go home Review of Systems Review of Systems: All systems reviewed and unremarkable except as noted below Respiratory: + dyspnea on exertion; no wheezing Gastrointestinal: no abdominal pain Neurologic: + generalized weakness Physical Exam Physical Exam: Sitting at the age of the bed with mild to moderate shortness of breath Constitutional: well developed, well nourished, + ill appearing and + morbidly obese; no acute distress Eyes: PERRL, conjunctivae normal, anicteric sclerae ENMT: external ear and nose normal, oropharynx normal Neck: trachea midline, no thyromegaly Respiratory: + respiratory distress (Mild to moderate respiratory distress) Auscultation: lungs clear to auscultation bilaterally and + diminished lung sounds (At the bases) Cardiovascular: Rate/Rhythm: regular rate and regular rhythm Heart Sounds: no murmur Gastrointestinal (Abdomen): Inspection/Auscultation: abdomen normal to inspection and normal bowel sounds Percussion/Palpation: abdomen soft; abdomen nontender Neurologic: moves all extremities; no focal motor deficits Alert, awake and oriented x3 Psychiatric: A+Ox3, euthymic affect Lymphatic: no cervical or axillary lymphadenopathy Results & Data Vital Signs (Past 12 Hours) Vital Signs Temp Pulse Pulse Resp BP BP Pulse Ox 07/15/19 11:35 36.8 C 72 18 122/80 95 07/15/19 08:00 98 H 07/15/19 07:53 37.8 C H 91 H 18 107/67 91 07/15/19 03:48 36.6 C 86 22 103/49 L 97 Laboratory Results Short CBC 07/15/19 Range/Units 05:30 WBC 13.15 H (4.8-10.8) K/uL Hgb 9.6 L (12.0-16.0) g/dL Hct 32.2 L (37-47) % Plt Count 401 H (130-400) K/uL BMP 07/15/19 05:30 Sodium 136 Potassium 2.8 L D Chloride 86 L Carbon Dioxide 44 H* BUN 12 Creatinine 0.60 Glucose 149 H Calcium 8.3 L Medications Administered Current Inpatient Medications Acetaminophen (Tylenol) 650 mg PO Q4H PRN PRN Reason: Pain or Fever Stop: 08/08/19 22:27 Last Admin: 07/15/19 12:29 Dose: 650 mg Documented by: Atenolol (Tenormin) 25 mg PO [facility] Stop: 08/09/19 08:59 Last Admin: 07/15/19 07:46 Dose: 25 mg Documented by: Clopidogrel Bisulfate (Plavix) 75 mg PO [facility] Stop: 08/12/19 14:44 Last Admin: 07/15/19 07:46 Dose: 75 mg Documented by: Dextrose (Dextrose 50%) 25 - 50 ml IV UD PRN; Protocol PRN Reason: Hypoglycemia Protocol Stop: 08/08/19 22:44 Glucagon (Glucagen) 1 mg IM UD PRN; Protocol PRN Reason: Hypoglycemia Protocol Stop: 08/08/19 22:44 Glucose (Glucose 40%) 15 - 30 gm PO UD PRN; Protocol PRN Reason: Hypoglycemia Protocol Stop: 08/08/19 22:44 Glucose (Dex4 Glucose) 4 - 8 tabs PO UD PRN; Protocol PRN Reason: Hypoglycemia Protocol Stop: 08/08/19 22:44 Hydrochlorothiazide (Hctz) 25 mg PO [facility] Stop: 08/10/19 08:59 Last Admin: 07/14/19 07:50 Dose: 25 mg Documented by: Sodium Chloride (Nss) 250 mls @ 15 mls/hr IV .[id number] PRN PRN Reason: For Transfusion Stop: 08/12/19 16:08 Insulin Aspart (Novolog Flexpen) 0 units SC [facility] Stop: 08/08/19 22:27 Last Admin: 07/15/19 12:27 Dose: 4 units Documented by: Magnesium Oxide (Mag-Ox) 400 mg PO QAM [facility] Stop: 08/09/19 08:59 Last Admin: 07/15/19 07:46 Dose: 400 mg Documented by: Miscellaneous (Carbohydrates For Hypoglycemia) 15 - 30 gm PO UD PRN PRN Reason: Hypoglycemia Treatment Stop: 08/08/19 22:44 Nitroglycerin (Nitrostat) 0.4 mg SL UD PRN PRN Reason: Chest Pain Stop: 08/08/19 22:27 Ondansetron HCl (Zofran) 4 mg IV Q6H PRN PRN Reason: Nausea Stop: 08/08/19 22:27 Pantoprazole Sodium (Protonix) 40 mg PO BID [facility] Stop: 08/11/19 20:59 Last Admin: 07/15/19 07:46 Dose: 40 mg Documented by: (1) Anemia Anemia type: unspecified type Qualified Code(s): D64.9 - Anemia, unspecified
[2019-07-15 15:07] LABS: BUN Creatinine Ratio 15.3 (10-20); Blood Urea Nitrogen 13 mg/dl (7-18); Calcium 8.7 mg/dl (8.5-10.1); Carbon Dioxide 43 mmol/L (21-32); Chloride 87 mmol/L (98-107); Creatinine Clr Calc Pharmacy 81.2 ml/min; Est GFR (African American) 80.5; Est GFR (Non-African American) 69.4; Glucose 149 mg/dl (70-99); Sodium 133 mmol/L (136-145)
[2019-07-16 06:15] LABS: Basophils # (auto) 0.03 K/uL (0-0.2); Basophils % (auto) 0.3 %; Eosinophils # (auto) 0.35 K/uL (0-0.5); Eosinophils % (auto) 3.3 %; Hemoglobin 9.4 g/dL (12.0-16.0); Immature Granulocytes # (auto) 0.05 K/uL (0.00-0.02); Immature Granulocytes % (auto) 0.5 %; Lymphocytes # (auto) 0.95 K/uL (1.2-3.4); Lymphocytes % (auto) 8.9 %; Mean Corpuscular Hemoglobin 26.3 pg (25-34); Mean Corpuscular Hgb Conc 29.4 g/dL (32-36); Mean Corpuscular Volume 89.6 fL (80-100); Mean Platelet Volume 9.9 fL (7.4-10.4); Monocytes # (auto) 1.43 K/uL (0.11-0.59); Monocytes % (auto) 13.4 %; Neutrophils # (auto) 7.84 K/uL (1.4-6.5); Neutrophils % (auto) 73.6 %; Nucleated RBC # (auto) 0.02 K/uL (0-0); Nucleated RBC % (auto) 0.2 %; Platelet Count 405 K/uL (130-400); RDW Coefficient of Variation 15.9 % (11.5-14.5); RDW Standard Deviation 51.6 fL (36.4-46.3); Red Blood Count 3.57 M/uL (4.2-5.4); White Blood Count 10.65 K/uL (4.8-10.8)
[2019-07-16 06:57] LABS: BUN Creatinine Ratio 16.2 (10-20); Calcium 8.6 mg/dl (8.5-10.1); Est GFR (African American) 108.9; Magnesium 2.2 mg/dl (1.8-2.4)
[2019-07-16 06:58] LABS: Potassium 3.5 mmol/L (3.5-5.1)
[2019-07-16] MEDS: ATENOLOL 25 MG TABLET PO SCH (08:07)
[2019-07-16] MEDS: CLOPIDOGREL BISULFATE 75 MG TAB PO SCH (08:07)
[2019-07-16] MEDS: MAGNESIUM OXIDE 400 MG TAB PO SCH (08:07)
[2019-07-16] MEDS: PANTOprazole 40 MG TAB PO SCH (08:07)
[2019-07-16] MEDS: INSULIN ASPART 100 UNITS/ML 3 ML PEN SC SCH ×3 (08:16→17:06)
[2019-07-16] MEDS: hydroCHLOROthiazide 25 MG TAB PO SCH (09:19)
[2019-07-16] MEDS: ACETAMINOPHEN 325 MG TAB PO PRN (09:22)
[2019-07-16] MEDS ORDERED: LOPERAMIDE HCL 2 MG CAP PO PRN (10:15)
--- NOTE | 2019-07-16 11:48 | Hospitalist Progress Note ---
Date of Service July 16, 2019 Assessment & Plan (1) Melena: secondary to Gastric Ulcer, in the setting of Plavix and Aspirin use placed on Protonix drip, GI consulted EGD showed one large nonbleeding cratered gastric ulcer along the lesser curvature of the stomach Advised to have PPI twice daily for 1 month and then daily ok to resume Plavix, but hold ASA as per GI repeat EGD in 4-6 weeks to check for healing Received 1 unit of blood transfusion Hemoglobin remained stable at 9 no recurrence of melena while admitted (2) Anemia: Secondary to upper GI blood loss Received 1 unit of blood transfusion Hemoglobin more than 9.0 (3) Sleep apnea: History of sleep apnea but does not tolerate CPAP and BiPAP Nocturnal pulse oximetry -suggested 2 L of nasal cannula oxygen continuously 2 step oxygen saturation -suggested 2 L of nasal cannula Pulmonary consulted- Dr. Gottlieb - scheduled for follow up a week after discharge (4) Shortness of breath: Has been complaining of shortness of breath for a while-seems to be multifactorial including sleep apnea and obesity and not due to cardiac condition Complains to have more leg swelling on admission Chest x-ray did not show any CHF and/or pleural effusion Echocardiogram: Normal LV chamber size with mild concentric LVH, normal systolic function with EF of 65 to 70%, no segmental wall motion abnormalities, grade 1 diastolic dysfunction and no significant valvular pathology Nocturnal pulse oximetry showed the requirement for continuous 2 L nasal cannula oxygen 2 steps O2 saturation test suggested 2 L of oxygen continuously follow up with [facility] Dr. Gottlieb next week (5) Leg edema: likely from Diastolic CHF received Lasix IV 80mg x 2 doses change HCTZ to Lasix 20mg po daily titrate Lasix as needed and monitor PRP as outpatient (6) Dizziness: resolved d/c home with home health services per PT/OT (7) Diabetes: A1c 8.2 resume usual Metformin 1000mg BID monitor as outpatient (8) Hypertension: BP well controlled Has been on hydrochlorothiazide, now being changed to Lasix monitor BP as outpatient (9) Factor V Leiden mutation: Has been on aspirin and Plavix GI recommends to hold ASA, and resume Plavix ff up as outpatient Disposition d/c home with home health services follow up with PCP Dr. Cline on 07/21/19 at 11:05 am follow up with [facility] Dr. Gottlieb in 1 week Subjective ff up for GI bleed seen resting in bed, comfortable states she feels fine overall, on 2 L O2 via Nasal cannula denies shortness of breath, cough, chest pain, dizziness no abdominal pain, nausea, tolerating diet well no melena has 2-3 loose BMs per day, no fever/chills denies other symptoms Review of Systems Review of Systems: All systems reviewed & are unremarkable except as noted in HPI & below Physical Exam Physical Exam: General- oriented x 3, not in distress, speaks in sentences with no effort or accessory muscle use Eyes- anicteric Neck- no JVD Lungs- clear breath sounds bilaterally, no rales/wheezes Heart- normal rate, regular rhythm; no murmurs Abdomen- normal bowel sounds, nondistended, soft, nontender Extremities- mild lower leg edema, no calf tenderness, no erythema Neuro- alert, oriented x 3; no gross focal neurologic deficits Skin- warm & dry Results & Data Vital Signs (Past 12 Hours) Vital Signs Temp Pulse Resp BP Pulse Ox 07/16/19 09:37 96 07/16/19 07:45 36.7 C 80 16 116/76 96 (1) Anemia Anemia type: unspecified type Qualified Code(s): D64.9 - Anemia, unspecified
--- NOTE | 2019-07-16 15:24 | Ultrasound Report ---
US venous doppler LE BI HISTORY: Pain. Edema. r/o dvt COMPARISON STUDY: None. FINDINGS: There is normal compressibility, flow, and augmentation within the bilateral lower extremit y deep venous systems. IMPRESSION: No DVT within the right or left lower extremity. The above report was generated using voice recognition software. It may contain grammatical, syntax or spelling errors. Electronically signed by: Delbert Loera M.D. 07/16/2019 3:23 PM
--- NOTE | 2019-07-16 16:54 | Discharge Summary ---
Date of Service July 16, 2019 Admission HPI Per Admitting Provider CHIEF COMPLAINT: Gastrointestinal bleed. HISTORY OF PRESENT ILLNESS: This patient is a 68-year-old female with past medical history significant for diabetes, hypertension, sleep apnea, noncompliant with continuous positive airway pressure, history of cerebrovascular accident about 8 years ago postoperatively after bilateral knee surgeries. She has a history of factor V Leiden deficiency and since then she is on aspirin and Plavix since last 8 years. She comes in with black stools. The patient is from [facility]. She is locating to [place]. She is coming close to live with her sister. She has no primary care physician yet in the [place]. She states since the last 2 days ago, she started noticing black stools and diarrhea. The last episode was yesterday afternoon, but then she started feeling dizzy and lightheaded, and that has brought her to the hospital. Her stool in the Emergency Room was black. She denies taking any [id number] ibuprofen, Motrin .On aspirin and Plavix. She has some discomfort in the epigastric region. No nausea. No vomiting. No chest pain. No shortness of breath currently, but she gets short of breath walking up hills. For the last couple of months, she noticed swelling in the lower extremities. She was diagnosed with sleep apnea a long time back, but she could not tolerate the continuous positive airway pressure machine. Denies any headache. No blurred vision. No earache. She has some sore throat. No difficulty swallowing. Appetite is okay. Sleeps okay. No recent weight gain or weight loss. No cough. No fever. No chills. No feeling of hot or cold. Normal bladder movements. No burning micturition. No blood in the urine. No rash. She states she bruises easily as she is on aspirin and Plavix. Currently resting comfortably and hemodynamically stable. ALLERGIES: CIPRO AND TETRACYCLINE. PAST MEDICAL HISTORY: As mentioned. PAST SURGICAL HISTORY: Status post cholecystectomy, status post back surgeries, status post hysterectomy and status post bilateral knee surgeries. MEDICATIONS: The patient is on Tylenol 500 mg as needed, aspirin 81 mg p.o. daily, atenolol 25 mg p.o. daily, Plavix 75 mg p.o. daily, hydrochlorothiazide 25 mg p.o. daily, lactobacillus daily, magnesium 250 mg p.o. daily, metformin 1000 mg p.o. b.i.d., and vitamin B6 1000 mg p.o. q.a.m. FAMILY HISTORY: Significant for mother from lung cancer. Father had cerebral bleeding. Maternal grandmother had diabetes. Grandfather had colon cancer. SOCIAL HISTORY: Quit smoking 8 years ago. Prior to that, she smoked half pack a day for 25 years. Denies alcohol use. Currently lives alone. Her sister lives close by. Admission Exam Per Admitting Provider PHYSICAL EXAMINATION: GENERAL: The patient is morbidly obese, not in acute distress. VITAL SIGNS: Temperature 36.8, pulse 85, respiratory rate 20, blood pressure 135/78 and oxygen 95% on room air. HEENT: No pallor. No icterus. Pupils are equal, round and reactive to light. NECK: No JVD. No neck masses. No carotid bruits. CARDIOVASCULAR: S1, S2 heard. Regular rate and rhythm. No murmur. No gallop. RESPIRATORY SYSTEM: Normal AP diameter. No accessory muscle use. No wheezing. No crackles. ABDOMEN: Soft. Bowel sounds present. Mild epigastric tenderness. No guarding. No rigidity. No distention. CENTRAL NERVOUS SYSTEM: Cranial nerves II through XII are grossly intact. Nonfocal. EXTREMITIES: Bilateral lower extremity +2 pedal edema present. No erythema seen. Principal Diagnosis Anemia, secondary to Upper GI bleed from Gastric Ulcer, in the setting of Plavix and Aspirin use Discharge Exam General- oriented x 3, not in distress, speaks in sentences with no effort or accessory muscle use Eyes- anicteric Neck- no JVD Lungs- clear breath sounds bilaterally, no rales/wheezes Heart- normal rate, regular rhythm; no murmurs Abdomen- normal bowel sounds, nondistended, soft, nontender Extremities- mild lower leg edema, no calf tenderness, no erythema Neuro- alert, oriented x 3; no gross focal neurologic deficits Skin- warm & dry Discharge Data Allergies Allergy/AdvReac Type Severity Reaction Status Date / Time ciprofloxacin [From Cipro] Allergy Intermediate Throat Verified 07/09/19 18:06 tightness tetracycline Allergy Intermediate Throat Verified 07/09/19 18:06 tightness Consultations 07/09/19 19:31 ED Decision to Admit Stat 07/09/19 22:28 Consult Case Management - Discharge Planning Routine 07/10/19 08:00 Consult Gastroenterology Routine 07/15/19 10:40 Consult Pulmonology Routine Procedures Performed Operation Date: 07/12/19 08:30 Actual Procedures p Esophagogastroduodenoscopy - Jovan Helms Procedure: Pre-Anesthesia Assessment: - Prior to the procedure, a History and Physical was performed, and patient medications, allergies and sensitivities were reviewed. The patient's tolerance of previous anesthesia was reviewed. - The risks and benefits of the procedure and the sedation options and risks were discussed with the patient. All questions were answered and informed consent was obtained. - Patient identification and proposed procedure were verified prior to the procedure by the physician and the nurse. The procedure was verified in the pre-procedure area. - Pre-procedure physical examination revealed no contraindications to sedation. - After reviewing the risks and benefits, the patient was deemed in satisfactory condition to undergo the procedure. After obtaining informed consent, the endoscope was passed under direct vision. Throughout the procedure, the patient's blood pressure, pulse, and oxygen saturations were monitored continuously. The Scope was introduced through the mouth, and advanced to the third part of duodenum. The upper GI endoscopy was accomplished without difficulty. The patient tolerated the procedure well. Findings: The esophagus was normal. One large non-bleeding cratered gastric ulcer with no stigmata of bleeding was found on the lesser curvature of the stomach. The examined duodenum was normal. The cardia and gastric fundus were normal on retroflexion. Impression: - Normal esophagus. - Large non-bleeding gastric ulcer with no stigmata of bleeding. - No blood seen in stomach. - Normal examined duodenum. - No specimens collected. Recommendation: - [facility]. - Patient needs to be on BID PPI for 1 month than QD indefinitely. - I will arrange a repeat EGD to confirm healing in 4-6 weeks. Ordered Studies 07/09/19 17:09 CT abd pelvis IV con only Stat CT DOSE: 1946.69 mGy.cm FINDINGS: Lung bases are clear. Moderate cardiomegaly is noted. No pneumatosis, free air or portal venous gas is present. No hepatic lesions are present. The spleen, adrenal glands and kidneys are normal. Is no hydronephrosis. There is no biliary or pancreatic ductal dilatation. There is subtle infiltration along the lesser curvature the stomach, adjacent to the antrum. No free air is present. There is no abscess. Apparent gastric wall thickening is noted. There is no evidence for a bowel obstruction. The appendix is normal. Colonic diverticulosis is noted without evidence for acute diverticulitis. There are no suspicious osseous lesions. Multilevel degenerative changes within the lumbar spine are noted. Sensitivity for detection mucosal lesions is diminished given CT technique. IMPRESSION: 1. Minimal infiltration adjacent to the gastric antrum along the lesser curvature. Possible gastric wall thickening. The findings favor peptic ulcer disease. No free air. A mucosal lesion could appear similar. GI consultation for consideration for endoscopy is recommended. 2. No bowel obstruction. Normal appendix. 07/16/19 11:53 US venous doppler LE BI Stat IMPRESSION: No DVT within the right or left lower extremity. Hospital Course (1) Melena: secondary to Gastric Ulcer, in the setting of Plavix and Aspirin use placed on Protonix drip, GI consulted EGD showed one large nonbleeding cratered gastric ulcer along the lesser curvature of the stomach Advised to have PPI twice daily for 1 month and then daily indefinitely ok to resume Plavix, but hold ASA as per GI repeat EGD in 4-6 weeks to check for healing Received 1 unit of blood transfusion Hemoglobin remained stable at 9 no recurrence of melena while admitted (2) Anemia: Secondary to upper GI blood loss Received 1 unit of blood transfusion Hemoglobin more than 9.0 (3) Sleep apnea: History of sleep apnea but does not tolerate CPAP and BiPAP Nocturnal pulse oximetry -suggested 2 L of nasal cannula oxygen continuously 2 step oxygen saturation -suggested 2 L of nasal cannula Pulmonary consulted- Dr. Gottlieb - scheduled for follow up a week after discharge (4) Shortness of breath: Has been complaining of shortness of breath for a while-seems to be multifactorial including sleep apnea and obesity and not due to cardiac condition Complains to have more leg swelling on admission Chest x-ray did not show any CHF and/or pleural effusion Echocardiogram: Normal LV chamber size with mild concentric LVH, normal systolic function with EF of 65 to 70%, no segmental wall motion abnormalities, grade 1 diastolic dysfunction and no significant valvular pathology Nocturnal pulse oximetry showed the requirement for continuous 2 L nasal cannula oxygen 2 steps O2 saturation test suggested 2 L of oxygen continuously follow up with [facility] [employer] [facility] Dr. Gottlieb next week (5) Leg edema: likely from Diastolic CHF received Lasix IV 80mg x 2 doses change HCTZ to Lasix 20mg po daily titrate Lasix as needed and monitor PRP as outpatient (6) Dizziness: resolved d/c home with home health services per PT/OT (7) Diabetes: A1c 8.2 resume usual Metformin 1000mg BID monitor as outpatient (8) Hypertension: BP well controlled Has been on hydrochlorothiazide, now being changed to Lasix monitor BP as outpatient (9) Factor V Leiden mutation: Has been on aspirin and Plavix GI recommends to hold ASA, and resume Plavix ff up as outpatient Disposition d/c home with home health services follow up with PCP Dr. Cline on 07/21/19 at 11:05 am follow up with [facility] [employer] [facility] Dr. Gottlieb in 1 week Total Time Total Time Spent Total Time Spent (In Minutes): 60 minutes Discharge Plan Discharge Items Patient Disposition: Home - Home Health Services Reason For Visit: BLACK STOOL AND DIZZINESS Discharge Diagnosis: Upper gastrointestinal bleed, secondary to gastric ulcer, with anemia Discharge Goals: Diagnostic testing and Therapeutic intervention Activity: As commented below Activity Comment: Resume activity gradually as tolerated, No heavy exertion until reevaluated Lifting: Gradually increase as tolerated and Wait until after follow-up appointment Exercise/Sports: Wait until after follow-up appointment Driving/Machine Use Comment: No driving until reevaluated by primary care physician Non-emergency contact: Primary Care Provider Call non-emergency contact if: you have any medication questions, your symptoms worsen and you have a fever Follow-up/Referrals: Manohar Gottlieb MD [Physician] - Diet: Carb Consistent or DM2 and Heart Healthy Addtl Provider Instructions: Follow-up with primary care physician at the [facility]- Dr. Cline on July 21, 2019 at 11:05 AM. [facility]): [address] [place] [address] Follow-up with [facility] group media production manager, Dr. Manohar Gottlieb, next week as scheduled. Follow up with [facility] Dr. Jovan Helms at the [facility] in 4-6 weeks for repeat endoscopy. Please call his clinic for an appointment. Call primary care physician or return to the ER immediately if with recurrence or worsening symptoms, Black stools or bloody stools, abdominal pain, nausea /vomiting, shortness of breath, weakness, increasing leg swelling. Prescriptions: New pantoprazole 40 mg Tablet,Delayed Release (Dr/Ec) 40 mg PO BID Qty: 90 RF: 0 furosemide [Lasix] 20 mg tablet 20 mg PO DAILY Qty: 30 RF: 2 potassium chloride 20 mEq tablet extended release 20 meq PO DAILY Qty: 30 RF: 2 Continued atenolol 25 mg Tablet 25 mg PO QAM RF: 0 clopidogrel [Plavix] 75 mg Tablet 75 mg PO QAM RF: 0 acetaminophen 500 mg Tablet 500 mg PO DIRECTED PRN (Reason: Fever Or Pain) RF: 0 metformin 1,000 mg Tablet 1,000 mg PO BID RF: 0 magnesium 250 mg Tablet 250 mg PO QAM RF: 0 pyridoxine (vitamin B6) [Vitamin B-6] 100 mg Tablet 100 mg PO QAM RF: 0 Probiotic 3 billion cell Capsule PO QAM RF: 0 Discontinued aspirin 81 mg Tablet,Delayed Release (Dr/Ec) 81 mg PO QAM RF: 0 hydrochlorothiazide 25 mg Tablet 25 mg PO QAM RF: 0 Stand-Alone Forms: [facility] Discharge Orders: Discharge Order (Routine); Ordered 07/16/19 Ordered By: Jared Lockhart Admission Data Admit Date/Time: 07/09/19 20:21 Attending Provider: Jared Lockhart Admit Provider: Jeremías Keller Primary Care Provider: PCP,NO Other Providers: Jeremías Keller ; Gonzalez Davison Jeffrey A. ; Dano Geller ; Anna Harman ; Sky Horton ; Ruth Alas ; Chu Metzger ; Bg Angel ; Ana María Staley ; Jose F Sandoval ; Bart Moseley ; Madeleine Lieberman ; Al Gavin ; Travon Douglas ; Randell Michaels ; Marek Cabrera ; Franklyn Savage ; Travis Lo Service: Medical Other Interventions: Discharge Summary Assessment (RN) Last Done: 07/16/19 16:17
== END 2019-07-16 17:45 | disposition home health service (06) | DRG 813 ==
LOC: ED 16:42 → 2S 20:21 → SUATTDRO 20:21 → 2S 21:28 → 4W 07-15 18:55